=== PATIENT | female | born 1950 | race Caucasian/White ===

== ENCOUNTER 2018-10-10 10:30 | Outpatient (CLI) | payer MEDICARE, MEDICAID ==
[~2018-10-10 10:30] MED LIST: AMLO10TA PO; BACL10TA2; BUPR150T8 PO; BUPR1TAB36 SL; EREN70AU; OMEP20CA11 PO; PARO10TA85 PO
[2018-10-10] MEDS ORDERED: hydrocortisone 1% cream 28gm TP ONE (11:51)
[2018-10-10] MEDS ORDERED: nystatin/triamcinolone cream 15gm TP ONE (11:51)
--- NOTE | 2018-10-10 12:39 | NUR ---
Patient ambulated independently from [facility] and was admitted to outpatient wound care for physician visit with Stewart Christensen MD. Dressing removed, wounds cleansed and patient assessed for changes in conditions, medications and medical history. Dr. Christensen at bedside accompanied by RN. Wound assessed, time out performed by MD/RN. Wound debrided as detailed in the physician progress/procedure note. Plan of care discussed with patient. Dressings placed per MD orders. Patient instructed on the signs and symptoms of infection and to call the Wound Center if any occur or to go to the ED if we are closed: Increased pain in wound Increase in drainage from the wound Redness in the skin surrounding the wound Bleeding from the wound Temperature of 101 or greater Patient instructed that the weight of their body puts a large amount of pressure on their wounds. This pressure keeps the new tissue from growing and inhibits new blood vessels from forming. Explained that, if they continue to bear weight on a body part that has a wound, the time it takes to heal the wound increases, the wound may get worse or the wound may not heal at all. Patient verbalized understanding of all discharge instructions and plan of care and ambulated independently out to [facility] in stable condition with no sign or symptom of distress at time of discharge. Addendum: 10/10/18 at 1242 by Nereida Peterson RN Amended: Links added.
== END 2018-10-10 12:23 | disposition home or self-care (01) ==
LOC: WOUND CARE 10:30 → EDSTATUS 10:30 → WOUND CARE 12:23
PROVIDERS: ATTEND Surgery
DX: S81.802D Unspecified open wound, left lower leg, subsequent encounter (principal); S80.811A Abrasion, right lower leg, initial encounter; X58.XXXD Exposure to other specified factors, subsequent encounter; X58.XXXA Exposure to other specified factors, initial encounter; Y93.89 Activity, other specified; Y92.89 Other specified places as the place of occurrence of the external cause; Y99.8 Other external cause status
CPT/HCPCS: 29581; A6223; J7999; A6441

== ENCOUNTER 2018-12-26 16:17 | Inpatient (IN) | payer MEDICARE, MEDICAID ==
[~2018-12-26] VITALS: Ht 165.1 cm; Wt 50.0 kg
[2018-12-26] MEDS ORDERED: morphine 4 MG/ML inj SYRINge IV ONE (16:45)
[2018-12-26] MEDS ORDERED: ondansetron/PF 4mg/2ml inj IV ONE (16:45)
--- NOTE | 2018-12-26 17:15 | NUR ---
pt out to ct via usha with electric knife operator
[2018-12-26 17:17] LABS: BASOPHILS # (AUTO) 0.1 X10'3 (0-0.2); BASOPHILS % (AUTO) 1.5 % (0-1); EOSINOPHILS # (AUTO) 0.1 X10'3 (0-0.9); EOSINOPHILS % (AUTO) 2.2 % (0-6); HEMOGLOBIN 13.9 g/dl (12.0-16.0); LYMPHOCYTES # (AUTO) 1.2 X10'3 (1.1-4.8); LYMPHOCYTES % (AUTO) 26.6 % (21-51); MEAN CORPUSCULAR HEMOGLOBIN 33.3 PG (27.0-31.0); MEAN CORPUSCULAR VOLUME 97.9 FL (78-98); MEAN PLATELET VOLUME 6.5 FL (7.4-10.4); MONOCYTES # (AUTO) 0.5 X10'3 (0-0.9); MONOCYTES % (AUTO) 12.4 % (2-12); NEUTROPHILS # (AUTO) 2.5 X10'3 (1.8-7.7); NEUTROPHILS % (AUTO) 57.3 % (42-75); PLATELET COUNT 257 X10'3 (140-440); RED BLOOD COUNT 4.19 X10'6 (4.20-5.60); RED CELL DISTRIBUTION WIDTH 12.9 % (11.5-14.5); WHITE BLOOD COUNT 4.4 X10'3 (4.5-11.0)
[2018-12-26 17:30] LABS: PARTIAL THROMBOPLASTIN TIME 29 SECONDS (22-32)
[2018-12-26 17:32] LABS: ALANINE AMINOTRANSFERASE 31 U/L (12-78); ALBUMIN 4.1 G/DL (3.4-5.0); ALBUMIN/GLOBULIN RATIO 1.2 (1.1-1.5); ALKALINE PHOSPHATASE 82 IU/L (46-116); ANION GAP 10 (8-16); ASPARTATE AMINO TRANSFERASE 31 U/L (10-37); BILIRUBIN,TOTAL 0.4 MG/DL (0.1-1.0); BLOOD UREA NITROGEN 4 MG/DL (7-18); BUN/CREATININE RATIO 9.1 (6.6-38.0); CALCIUM 8.9 MG/DL (8.5-10.1); CHLORIDE 98 MMOL/L (99-107); CREATININE 0.44 MG/DL (0.40-0.90); GLUCOSE 93 MG/DL (70-104); POTASSIUM 3.5 MMOL/L (3.5-5.1); SODIUM 137 MMOL/L (135-145); TOTAL CARBON DIOXIDE 29.3 MMOL/L (24-32); TOTAL PROTEIN 7.4 G/DL (6.4-8.2); eGFR > 90 ML/MIN
[2018-12-26] MEDS ORDERED: HYDROmorphone 1 mg/ml syringe IV ONE ×2 (18:05→19:45)
[2018-12-26] MEDS ORDERED: dextrose 5%-1/2 normal saline 1,000 ML IV SCH (18:10)
[2018-12-26] MEDS ORDERED: acetaminophen 325mg tablet PO PRN (18:10)
[2018-12-26] MEDS ORDERED: mag hydrox/Alum hydrox/simeth 30ml oral suspension PO PRN (18:10)
[2018-12-26] MEDS ORDERED: HYDROcodone/acetaminophen 5mg/325mg tablet PO PRN (18:10)
[2018-12-26] MEDS ORDERED: morphine 2 MG/ML inj. syringe IV PRN ×2 (18:10)
[2018-12-26] MEDS ORDERED: HYDROcodone/acetaminophen 10/325mg tab PO PRN ×2 (18:10→23:40)
[2018-12-26] MEDS ORDERED: ondansetron/PF 4mg/2ml inj IV PRN ×4 (18:10→23:40)
[2018-12-26] MEDS ORDERED: magnesium hydroxide 30ml (MOM) UD suspension PO PRN (18:10)
[2018-12-26] MEDS ORDERED: MULT-933 PO (19:08)
[2018-12-26] MEDS ORDERED: FLUT1AER (19:08)
[2018-12-26] MEDS ORDERED: ALBU18HF2 INH (19:08)
[2018-12-26] MEDS ORDERED: HYDROmorphone inj. 0.5 MG/0.5 ML DISP.SYRIN IV PRN (19:45)
[2018-12-26] MEDS ORDERED: HYDROmorphone 1 mg/ml syringe IV PRN (19:45)
[2018-12-26] MEDS ORDERED: non-formulary drug (Albuterol Sulfate (Ventolin Hfa) 2 PUFFS) INH SCH (19:55)
[2018-12-26 20:00] VITALS: BP 138/81
[2018-12-26] MEDS: buPROPion SR 150mg tablet PO SCH (20:00)
[2018-12-26] MEDS ORDERED: albuterol 2.5 MG/3 ML nebule NEB PRN (20:00)
--- NOTE | 2018-12-26 20:00 | NUR ---
PT ARRIVED TO UNIT VIA GURNEY. AMBULATED TO BED, VOIDED, VSS, CALL LIGHT IN REACH, BLL, 2X RAILS UP. PAIN MEDICINE GIVEN BY ED NURSE. WILL CONTINUE TO MONITOR
--- NOTE | 2018-12-26 20:05 | NUR ---
DILAUDID GIVEN BY KAVIN FORTE
[2018-12-26] MEDS: normal saline 1000ml 1,000 ML IV SCH (20:27)
--- NOTE | 2018-12-26 21:16 | NUR ---
Dr. Crawley at bedside
[2018-12-26] MEDS ORDERED: ringers solution, lacted 1,000 ML IV SCH (21:28)
[2018-12-26] MEDS ORDERED: morphine 4 MG/ML inj SYRINge IV PRN ×2 (21:30)
[2018-12-26] MEDS ORDERED: fentaNYL/PF 50MCG/1 ML 2ML syringe IV PRN ×2 (21:30)
[2018-12-26] MEDS ORDERED: labetalol 20mg/4ml (5mg/ml) syringe IV PRN (21:30)
[2018-12-26] MEDS ORDERED: hydrALAZINE 20mg/ml inj. IV PRN (21:30)
[2018-12-26 21:45] VITALS: BP 138/81
[2018-12-26] MEDS ORDERED: fentaNYL/PF 50MCG/1 ML 2ML syringe ONE ×2 (22:00)
[2018-12-26] MEDS ORDERED: midazolam 2 mg/2 ml injection ONE (22:01)
[2018-12-26] MEDS ORDERED: glycopyrrolate 0.2mg/ml inj ONE (22:02)
[2018-12-26] MEDS ORDERED: neostigmine methylsulfate 1 MG/ML 10ml vial ONE (22:02)
[2018-12-26] MEDS ORDERED: rocuronium 10mg/ml inj IV ONE (22:02)
[2018-12-26] MEDS ORDERED: dexamethasone sod phosphate 4mg/ml inj. ONE (22:03)
[2018-12-26] MEDS ORDERED: ondansetron/PF 4mg/2ml inj ONE (22:03)
[2018-12-26] MEDS ORDERED: propofol inj 20 ML IV ONE (22:03)
[2018-12-26] MEDS ORDERED: LIDOcaine 1%/PF 5ML 10 MG/ML VIAL ONE (22:03)
[2018-12-26] MEDS ORDERED: BUPIVAcaine/PF 2.5 mg/ml (0.25%) 30ml vial ONE (22:06)
[2018-12-26] MEDS ORDERED: ceFAZolin 1000mg inj ONE ×2 (22:06→22:44)
--- NOTE | 2018-12-26 22:15 | NUR ---
PT TO OPERATING ROOM
[2018-12-26 22:35] LABS: ALBUMIN 3.9 G/DL (3.4-5.0); BLOOD UREA NITROGEN 3 MG/DL (7-18); BUN/CREATININE RATIO 6.7 (6.6-38.0); CALCIUM 8.6 MG/DL (8.5-10.1); CHLORIDE 100 MMOL/L (99-107); CREATININE 0.45 MG/DL (0.40-0.90); PRE OP ANION GAP 12 (8-16); PRE OP GLUCOSE 103 MG/DL (70-104); PRE OP POTASSIUM 3.5 MMOL/L (3.4-5.1); PRE OP SODIUM 141 MMOL/L (135-145); TOTAL CARBON DIOXIDE 29.3 MMOL/L (24-32); eGFR > 90 ML/MIN
[2018-12-26 23:05] LABS: MEAN CORPUSCULAR HEMOGLOBIN 33.3 PG (27.0-31.0); MEAN CORPUSCULAR HGB CONC 33.6 g/dL (33.0-36.5); MEAN PLATELET VOLUME 6.8 FL (7.4-10.4); PRE OP HEMATOCRIT 42.6 % (35.0-45.0); PRE OP HEMOGLOBIN 14.3 g/dL (12.0-16.0); PRE OP PLATELET COUNT 258 X10'3 (140-440); RED CELL DISTRIBUTION WIDTH 12.9 % (11.5-14.5)
--- NOTE | 2018-12-26 23:10 | NUR ---
report called from recovery room, KAVIN Coy
--- NOTE | 2018-12-26 23:40 | NUR ---
pt arrived back to unit. VSS, in no apparent distress, will continue to monitor Addendum: 12/27/18 at 0216 by Jose E Schuler RN inc date/time. 12/27/18 at 0000
[2018-12-26 23:45] VITALS: BP 156/95
--- NOTE | 2018-12-26 23:45 | NUR ---
Received from OR via MEDICAL BED, accompanied by Anesthesiologist DR. FRITZ and report given by Anesthesiolgist. PT ARRIVED WITH O2 VIA MASK AT 10L IN PLACE. AWAKE AND ALERT, DENIES PAIN. DRESSING TO LT GROIN CDI. JAIME WITH GOOD CSM. PUSLES AND DREDGE WORKER WNL.
[2018-12-26 23:55] VITALS: BP 147/84
[2018-12-27] VITALS (12 sets, daily range): BP systolic 106–148; BP diastolic 35–88
[2018-12-27] MEDS ORDERED: ceFAZolin 1GM/D5W- ADD-VANTAGE 50 ML IV SCH
--- NOTE | 2018-12-27 00:25 | NUR ---
Report called to receiving nurse ANITHA VALE. Transferred via MEDICAL BED TO ROOM 350B. Belongings NONE BROUGHT TO RR. Special Issues communicated to receiving nurse. VSS ON RA.
[2018-12-27] MEDS: ceFAZolin 1GM/D5W- ADD-VANTAGE 50 ML IV SCH ×2 (00:56→08:05)
[2018-12-27] MEDS: normal saline 1000ml 1,000 ML IV SCH (05:40)
[2018-12-27 06:25] LABS: BASOPHILS % (AUTO) 0.3 % (0-1); EOSINOPHILS % (AUTO) 0 % (0-6); HEMATOCRIT 42.1 % (35.0-45.0); HEMOGLOBIN 14.3 g/dl (12.0-16.0); LYMPHOCYTES # (AUTO) 0.4 X10'3 (1.1-4.8); LYMPHOCYTES % (AUTO) 5.5 % (21-51); MEAN CORPUSCULAR HEMOGLOBIN 33.9 PG (27.0-31.0); MEAN CORPUSCULAR VOLUME 99.5 FL (78-98); MONOCYTES # (AUTO) 0.1 X10'3 (0-0.9); MONOCYTES % (AUTO) 1.8 % (2-12); NEUTROPHILS % (AUTO) 92.4 % (42-75); PLATELET COUNT 239 X10'3 (140-440); RED BLOOD COUNT 4.23 X10'6 (4.20-5.60); RED CELL DISTRIBUTION WIDTH 12.9 % (11.5-14.5); WHITE BLOOD COUNT 7.5 X10'3 (4.5-11.0)
--- NOTE | 2018-12-27 06:39 | NUR ---
Problems reprioritized. Patient report given, questions answered & plan of care reviewed with KAVIN Gordon.
--- NOTE | 2018-12-27 06:49 | NUR ---
Patient in room [facility] 350. I have received report from You VALE and had the opportunity to ask questions and assume patient care.
[2018-12-27 06:59] LABS: ALANINE AMINOTRANSFERASE 27 U/L (12-78); ALBUMIN 3.4 G/DL (3.4-5.0); ALBUMIN/GLOBULIN RATIO 1.1 (1.1-1.5); ALKALINE PHOSPHATASE 73 IU/L (46-116); ANION GAP 10 (8-16); ASPARTATE AMINO TRANSFERASE 25 U/L (10-37); BILIRUBIN,TOTAL 0.5 MG/DL (0.1-1.0); BLOOD UREA NITROGEN 3 MG/DL (7-18); BUN/CREATININE RATIO 6.4 (6.6-38.0); CALCIUM 8.3 MG/DL (8.5-10.1); CHLORIDE 103 MMOL/L (99-107); CREATININE 0.47 MG/DL (0.40-0.90); GLUCOSE 143 MG/DL (70-104); POTASSIUM 3.6 MMOL/L (3.5-5.1); SODIUM 141 MMOL/L (135-145); TOTAL CARBON DIOXIDE 27.9 MMOL/L (24-32); TOTAL PROTEIN 6.6 G/DL (6.4-8.2); eGFR > 90 ML/MIN
[2018-12-27] MEDS ORDERED: pantoprazole 40mg Tablet.DR PO SCH (07:30)
[2018-12-27] MEDS ORDERED: non-formulary drug (Amlodipine Besylate 1 TABLET) PO SCH (08:00)
[2018-12-27] MEDS ORDERED: non-formulary drug (Omeprazole 1 CAP) PO SCH (08:00)
[2018-12-27] MEDS ORDERED: amLODIPine 5mg tablet PO SCH (08:00)
[2018-12-27] MEDS ORDERED: PARoxetine 10mg tablet PO SCH (08:00)
[2018-12-27] MEDS: buPROPion SR 150mg tablet PO SCH (08:05)
[2018-12-27] MEDS ORDERED: HYDR-4353 PO (16:11)
--- NOTE | 2018-12-27 18:00 | NUR ---
Pt DC, A&O, pt's packed and bagged all personal belongings. Pt in no apparent distress. Pt & state understanding of discharge orders and follow up with Dr Holland. Pt was given a [place] prescription with her DC folder. Pt was happy to go hm.
== END 2018-12-27 18:00 | disposition home or self-care (01) | DRG 351 ==
LOC: ER 16:17 → SUR 3N 20:16
PROVIDERS: ADMIT Internal Medicine; ATTEND Internal Medicine
PROC: 0YQ80ZZ Repair Left Femoral Region, Open Approach (ICD-10-PCS; principal; 2018-12-26 22:27)
DX: K41.30 Unilateral femoral hernia, with obstruction, without gangrene, not specified as recurrent (principal); Z68.1 Body mass index [BMI] 19.9 or less, adult; R63.6 Underweight; K21.9 Gastro-esophageal reflux disease without esophagitis; J44.9 Chronic obstructive pulmonary disease, unspecified; I10 Essential (primary) hypertension; F32.9 Major depressive disorder, single episode, unspecified; F41.9 Anxiety disorder, unspecified; G89.29 Other chronic pain; Z79.899 Other long term (current) drug therapy; Z90.710 Acquired absence of both cervix and uterus
CPT/HCPCS: 36415; 74176; 76775; 80048; 80053; 82948; 85025; 85027; 85610; 85730; 87081; 88302; 88305; 96361; 96374; 96375; 96376; 99285; A4215; A4618; A6258; A7000; C1758; G0378; J0690; J1100; J1170; J2250; J2270; J2405; J2704; J2710; J3010; J3490; J7030; J7120

== ENCOUNTER 2019-03-17 05:12 | Day surgery (SDC) | payer MEDICARE, MEDICAID ==
[2019-03-16 14:36] LABS: BASOPHILS % (AUTO) 0.5 % (0-1); EOSINOPHILS # (AUTO) 0.1 X10'3 (0-0.9); EOSINOPHILS % (AUTO) 2.2 % (0-6); LYMPHOCYTES % (AUTO) 17.9 % (21-51); MEAN CORPUSCULAR HEMOGLOBIN 32.8 PG (27.0-31.0); MEAN CORPUSCULAR HGB CONC 34.8 g/dL (33.0-36.5); MEAN CORPUSCULAR VOLUME 94.1 FL (78-98); MEAN PLATELET VOLUME 6.8 FL (7.4-10.4); MONOCYTES # (AUTO) 0.7 X10'3 (0-0.9); MONOCYTES % (AUTO) 12.1 % (2-12); NEUTROPHILS # (AUTO) 3.7 X10'3 (1.8-7.7); NEUTROPHILS % (AUTO) 67.3 % (42-75); PRE OP HEMATOCRIT 41.4 % (35.0-45.0); PRE OP HEMOGLOBIN 14.4 g/dL (12.0-16.0); PRE OP PLATELET COUNT 290 X10'3 (140-440); RED CELL DISTRIBUTION WIDTH 13.1 % (11.5-14.5)
[2019-03-16 14:49] LABS: ALBUMIN 4.1 G/DL (3.4-5.0); ALBUMIN/GLOBULIN RATIO 1.3 (1.1-1.5); ALKALINE PHOSPHATASE 78 IU/L (46-116); BLOOD UREA NITROGEN 6 MG/DL (7-18); CALCIUM 9.3 MG/DL (8.5-10.1); CHLORIDE 98 MMOL/L (99-107); PRE OP ALT 32 U/L (30-65); PRE OP ANION GAP 6 (8-16); PRE OP AST 32 U/L (10-37); PRE OP BILIRUB, TOTAL 0.5 MG/DL (0.0-1.0); PRE OP GLUCOSE 89 MG/DL (70-104); PRE OP POTASSIUM 3.9 MMOL/L (3.4-5.1); PRE OP SODIUM 136 MMOL/L (135-145); TOTAL CARBON DIOXIDE 32.3 MMOL/L (24-32); TOTAL PROTEIN 7.2 G/DL (6.4-8.2); eGFR > 90 ML/MIN
[2019-03-17] VITALS (9 sets, daily range): BP systolic 109–134; BP diastolic 63–80
[~2019-03-17] VITALS: Ht 165.1 cm; Wt 49.9 kg
[~2019-03-17 05:12] MED LIST changes: +ALBU18HF2 INH; +B COMPLEX; -BACL10TA2; +BACL10TA2 PO; +FLUT1AER INH; +IRON; +MAG; +MULT-933 PO; +OMEGA; +OMEP-297 PO; -OMEP20CA11 PO; +POTASSIUM; +ZINC; +[UNRECOGNIZED DRUG - OTHER]; +[UNRECOGNIZED DRUG - OTHER]; +ringers solution, lacted 1,000 ML IV SCH
[2019-03-17] MEDS ORDERED: famotidine 10mg tablet PO ONE (05:30)
[2019-03-17] MEDS ORDERED: albuterol 2.5 MG/3 ML nebule NEB ONE (05:30)
[2019-03-17] MEDS ORDERED: cefazolin/dext.iso 2gm/100ml 100 ML IV ONE (05:30)
[2019-03-17] MEDS ORDERED: LIDOcaine 1% (10mg/ml) 2ml vial ONE (06:03)
[2019-03-17] MEDS ORDERED: ceFAZolin 1000mg inj ONE (06:43)
[2019-03-17] MEDS ORDERED: LIDOcaine 1% 30ml preserv. free vial ONE (06:43)
[2019-03-17] MEDS ORDERED: BUPIVAcaine/PF 2.5 mg/ml (0.25%) 30ml vial ONE (06:43)
[2019-03-17] MEDS ORDERED: sevoflurane 250ml liquid IH ONE (07:22)
[2019-03-17] MEDS ORDERED: fentaNYL/PF 50MCG/1 ML 2ML syringe ONE (07:27)
[2019-03-17] MEDS ORDERED: midazolam 2 mg/2 ml injection ONE (07:27)
[2019-03-17] MEDS ORDERED: propofol inj 20 ML IV ONE (07:30)
[2019-03-17] MEDS ORDERED: ringers solution, lacted 1,000 ML IV SCH (07:44)
[2019-03-17] MEDS ORDERED: meperidine/PF 25mg/ml syringe IV PRN ×3 (07:45)
[2019-03-17] MEDS ORDERED: ondansetron/PF 4mg/2ml inj IV PRN (07:45)
[2019-03-17] MEDS ORDERED: proCHLORperazine 10 MG/2 ml inj IV PRN (07:45)
[2019-03-17] MEDS ORDERED: morphine 4 MG/ML inj SYRINge IV PRN ×2 (07:45)
--- NOTE | 2019-03-17 08:04 | NUR ---
Received from OR via DARIANA, accompanied by Anesthesiologist DR GUTIERREZ and report given by Anesthesiologist. PT DROWSY, DENEIS PAIN, RIGHT GROIN W/[place] NYLA STEVENS. Addendum: 03/17/19 at 0850 by Faiza Villegas RN Amended: Links added.
[2019-03-17] MEDS ORDERED: HYDROcodone/acetaminophen 5mg/325mg tablet PO PRN (08:10)
--- NOTE | 2019-03-17 09:34 | NUR ---
D/C INSTRUCTIONS GIVEN AND GONE OVER W/PT WHO VERBALIZED UNDERSTANDING, PT D/CD TO HOME VIA W/C TO PRIVATE VEHICLE W/O INCIDENT. Addendum: 03/17/19 at 1010 by Faiza Villegas RN Amended: Links added.
== END 2019-03-17 09:34 | disposition home or self-care (01) ==
LOC: PAS 05:12
PROVIDERS: ATTEND Surgery
DX: R59.0 Localized enlarged lymph nodes (principal); F32.9 Major depressive disorder, single episode, unspecified; F41.9 Anxiety disorder, unspecified; J44.9 Chronic obstructive pulmonary disease, unspecified; K21.9 Gastro-esophageal reflux disease without esophagitis; I10 Essential (primary) hypertension; Z90.710 Acquired absence of both cervix and uterus; Z98.890 Other specified postprocedural states; Z79.899 Other long term (current) drug therapy; Z91.040 Latex allergy status; Z91.011 Allergy to milk products; Z72.89 Other problems related to lifestyle; Z82.49 Family history of ischemic heart disease and other diseases of the circulatory system; Z82.3 Family history of stroke; Z80.59 Family history of malignant neoplasm of other urinary tract organ
CPT/HCPCS: 36415; 38531; 80053; 82948; 85025; J0690; J2001; J2250; J2704; J3010; J3490; J7120; A4215; A4618; A7000

== ENCOUNTER 2019-09-22 05:29 | Day surgery (SDC) | payer MEDICARE, OTHER, MEDICAID ==
[2019-09-15 15:36] LABS: BASOPHILS % (AUTO) 0.8 % (0-1); EOSINOPHILS # (AUTO) 0.1 X10'3 (0-0.9); EOSINOPHILS % (AUTO) 1.1 % (0-6); LYMPHOCYTES # (AUTO) 1.3 X10'3 (1.1-4.8); LYMPHOCYTES % (AUTO) 20.8 % (21-51); MEAN CORPUSCULAR HEMOGLOBIN 33.3 PG (27.0-31.0); MEAN CORPUSCULAR HGB CONC 33.5 g/dL (33.0-36.5); MEAN CORPUSCULAR VOLUME 99.2 FL (78-98); MEAN PLATELET VOLUME 7.1 FL (7.4-10.4); MONOCYTES # (AUTO) 0.7 X10'3 (0-0.9); MONOCYTES % (AUTO) 10.3 % (2-12); NEUTROPHILS # (AUTO) 4.3 X10'3 (1.8-7.7); PRE OP HEMATOCRIT 41.2 % (35.0-45.0); PRE OP HEMOGLOBIN 13.8 g/dL (12.0-16.0); PRE OP PLATELET COUNT 330 X10'3 (140-440); RED BLOOD COUNT 4.15 X10'6 (4.20-5.60); RED CELL DISTRIBUTION WIDTH 12.7 % (11.5-14.5)
[2019-09-15 15:49] LABS: ALBUMIN 3.9 G/DL (3.4-5.0); ALBUMIN/GLOBULIN RATIO 1.1 (1.1-1.5); ALKALINE PHOSPHATASE 76 IU/L (46-116); BLOOD UREA NITROGEN 4 MG/DL (7-18); BUN/CREATININE RATIO 8.2 (6.6-38.0); CALCIUM 9.1 MG/DL (8.5-10.1); CHLORIDE 100 MMOL/L (99-107); CREATININE 0.49 MG/DL (0.40-0.90); PRE OP ALT 36 U/L (30-65); PRE OP ANION GAP 9 (8-16); PRE OP AST 40 U/L (10-37); PRE OP BILIRUB, TOTAL 0.5 MG/DL (0.0-1.0); PRE OP GLUCOSE 74 MG/DL (70-104); PRE OP POTASSIUM 3.8 MMOL/L (3.4-5.1); PRE OP SODIUM 139 MMOL/L (135-145); TOTAL CARBON DIOXIDE 30.5 MMOL/L (24-32); TOTAL PROTEIN 7.3 G/DL (6.4-8.2); eGFR > 90 ML/MIN
[2019-09-22] VITALS (11 sets, daily range): BP systolic 113–145; BP diastolic 63–80
[~2019-09-22] VITALS: Ht 162.6 cm; Wt 51.0 kg
[~2019-09-22 05:29] MED LIST changes: -BACL10TA2 PO; -BUPR1TAB36 SL; +BUPR1TAB45 SL; -FLUT1AER INH; -OMEP-297 PO; +OMEP20CA15 PO
[2019-09-22] MEDS ORDERED: famotidine 20mg tablet PO ONE (05:30)
[2019-09-22] MEDS ORDERED: ceFAZolin 2gm in dextrose, iso 50 ML IV ONE (05:30)
[2019-09-22] MEDS ORDERED: LIDOcaine 1% 30ml preserv. free vial ONE (06:37)
[2019-09-22] MEDS ORDERED: BUPIVAcaine/PF 2.5 mg/ml (0.25%) 30ml vial ONE (06:38)
[2019-09-22] MEDS ORDERED: rocuronium 10mg/ml inj IV ONE (06:59)
[2019-09-22] MEDS ORDERED: midazolam 2 mg/2 ml injection ONE (06:59)
[2019-09-22] MEDS ORDERED: fentaNYL/PF 50MCG/1 ML 2ML syringe ONE (06:59)
[2019-09-22] MEDS ORDERED: sevoflurane 250ml liquid IH ONE (07:31)
[2019-09-22] MEDS ORDERED: propofol inj 20 ML IV ONE (07:45)
[2019-09-22] MEDS ORDERED: ringers solution, lacted 1,000 ML IV SCH (08:18)
[2019-09-22] MEDS ORDERED: morphine 4 MG/ML inj SYRINge IV PRN (08:20)
[2019-09-22] MEDS ORDERED: meperidine/PF 25mg/ml syringe IV PRN ×3 (08:20)
[2019-09-22] MEDS ORDERED: morphine 2 MG/ML inj. syringe IV PRN (08:20)
[2019-09-22] MEDS ORDERED: ondansetron/PF 4mg/2ml inj IV PRN (08:20)
[2019-09-22] MEDS ORDERED: proCHLORperazine 10 MG/2 ml inj IV PRN (08:20)
[2019-09-22] MEDS ORDERED: dexamethasone sod phosphate 4mg/ml inj. ONE (08:43)
[2019-09-22] MEDS ORDERED: ondansetron/PF 4mg/2ml inj ONE (08:43)
--- NOTE | 2019-09-22 09:01 | NUR ---
Received from OR via DARIANA , accompanied by Anesthesiologist MIGUEL ANGEL and report given by Anesthesiolgist. PATIENT WITH 20G PIV IN RIGHT UE RUNNING LR AT 100 IN LEFT UE. PATIENT WITH 4X4 DRESSING WITH TAPE PRESENT THAT IS CDI. VSS. DENIES PAIN. VSS. Addendum: 09/22/19 at 0924 by Kameron Medina RN, RN Amended: Links added.
[2019-09-22] MEDS ORDERED: HYDROcodone/acetaminophen 5mg/325mg tablet PO PRN (09:10)
--- NOTE | 2019-09-22 10:41 | NUR ---
I HAVE REVIEWED D/C INSTRUCTIONS WITH PATIENT AND FAMILY AND THEY HAVE VERBALIZED UNDERSTANDING. PATIENT D/C HOME WITH ALL BELONGINGS AND FAMILY GAVE TRANSPORT HOME. VOIDED, AMBULATED AND ALL DC PAPERWORK AND SCRIPT SENT WITH PATIENT. Addendum: 09/22/19 at 1109 by Kameron Medina RN, RN Amended: Links added.
== END 2019-09-22 10:41 | disposition home or self-care (01) ==
LOC: PAS 05:29
PROVIDERS: ATTEND Surgery
DX: K41.30 Unilateral femoral hernia, with obstruction, without gangrene, not specified as recurrent (principal); M19.90 Unspecified osteoarthritis, unspecified site; F32.9 Major depressive disorder, single episode, unspecified; F41.9 Anxiety disorder, unspecified; I10 Essential (primary) hypertension; J44.9 Chronic obstructive pulmonary disease, unspecified; Z91.040 Latex allergy status; Z88.8 Allergy status to other drugs, medicaments and biological substances; Z72.89 Other problems related to lifestyle; Z11.59 Encounter for screening for other viral diseases; Z90.710 Acquired absence of both cervix and uterus; Z98.890 Other specified postprocedural states; Z90.49 Acquired absence of other specified parts of digestive tract; Z79.899 Other long term (current) drug therapy; Z91.011 Allergy to milk products
CPT/HCPCS: 36415; 49553; 80053; 82948; 85025; 93005; C1781; J1100; J2001; J2250; J2405; J2704; J3010; J3490; J7120; U0003; A4215; A4618; A6449

== ENCOUNTER 2019-11-25 18:13 | Emergency (ER) | payer MEDICARE, OTHER ==
[~2019-11-25] VITALS: Ht 167.6 cm; Wt 52.0 kg
[~2019-11-25 18:13] MED LIST changes: -AMLO10TA PO; +AMLO10TA13 PO; -B COMPLEX; +BUDE10.2 INH; +BUPR-72 PO; -BUPR150T8 PO; -BUPR1TAB45 SL; +BUPR8TAB4 PO; +CHLO25CA10 PO; +DICY10CA88 PO; -EREN70AU; -IRON; +LOPE-190 PO; -MAG; +MULT-25 PO; -MULT-933 PO; -OMEGA; +OMEP-50 PO; -OMEP20CA15 PO; +ONDA4TAB6 PO; +ONDA8TAB13 PO; +PARO10TA4 PO; -PARO10TA85 PO; -POTASSIUM; -ZINC; -[UNRECOGNIZED DRUG - OTHER]; -[UNRECOGNIZED DRUG - OTHER]; -ringers solution, lacted 1,000 ML IV SCH; +thiamine tablet PO
[2019-11-25 18:17] VITALS: BP 133/73
== END 2019-11-25 20:26 | disposition left against medical advice (07) ==
LOC: ER 18:13
DX: F10.129 Alcohol abuse with intoxication, unspecified (principal); Z53.21 Procedure and treatment not carried out due to patient leaving prior to being seen by health care provider; Y90.9 Presence of alcohol in blood, level not specified

== ENCOUNTER 2019-12-04 21:38 | Emergency (ER) | payer MEDICARE, OTHER ==
[~2019-12-04] VITALS: Ht 165.1 cm; Wt 56.0 kg
--- NOTE | 2019-12-04 22:28 | NUR ---
BREAKING PRIMARY RN- WILL CONT TO MONITOR
--- NOTE | 2019-12-04 22:47 | NUR ---
Dr. Mcginnis at bedside.
--- NOTE | 2019-12-04 23:00 | NUR ---
SPOKE WITH PT'S - HE IS ON HIS WAY TO PROCESS PLANNER PT
[2019-12-04 23:06] VITALS: BP 122/71
== END 2019-12-04 23:26 | disposition home or self-care (01) ==
LOC: ER 21:38
DX: F10.129 Alcohol abuse with intoxication, unspecified (principal); I10 Essential (primary) hypertension; J44.9 Chronic obstructive pulmonary disease, unspecified; M19.90 Unspecified osteoarthritis, unspecified site; G89.29 Other chronic pain; F41.9 Anxiety disorder, unspecified; F32.9 Major depressive disorder, single episode, unspecified; Z90.710 Acquired absence of both cervix and uterus; Z98.890 Other specified postprocedural states; Z88.8 Allergy status to other drugs, medicaments and biological substances; Z79.899 Other long term (current) drug therapy; Y90.0 Blood alcohol level of less than 20 mg/100 ml
CPT/HCPCS: 82948; 99284

== ENCOUNTER 2020-05-10 09:10 | Observation (INO) | payer MEDICARE, OTHER ==
[2020-05-03 15:54] LABS: BASOPHILS % (AUTO) 0.6 % (0-1); EOSINOPHILS # (AUTO) 0.1 X10'3 (0-0.9); EOSINOPHILS % (AUTO) 2.2 % (0-6); MEAN CORPUSCULAR HGB CONC 33.7 g/dL (33.0-36.5); MEAN CORPUSCULAR VOLUME 98.1 FL (78-98); MEAN PLATELET VOLUME 6.8 FL (7.4-10.4); MONOCYTES # (AUTO) 0.9 X10'3 (0-0.9); MONOCYTES % (AUTO) 17.2 % (2-12); NEUTROPHILS # (AUTO) 3.2 X10'3 (1.8-7.7); PRE OP HEMATOCRIT 39.6 % (35.0-45.0); PRE OP HEMOGLOBIN 13.3 g/dL (12.0-16.0); PRE OP PLATELET COUNT 289 X10'3 (140-440); RED BLOOD COUNT 4.03 X10'6 (4.20-5.60); RED CELL DISTRIBUTION WIDTH 13.2 % (11.5-14.5)
[2020-05-03 16:06] LABS: ALBUMIN/GLOBULIN RATIO 1.1 (1.1-1.5); ALKALINE PHOSPHATASE 72 IU/L (46-116); BLOOD UREA NITROGEN 7 MG/DL (7-18); BUN/CREATININE RATIO 13.5 (6.6-38.0); CALCIUM 8.7 MG/DL (8.5-10.1); CHLORIDE 98 MMOL/L (99-107); CREATININE 0.52 MG/DL (0.40-0.90); PRE OP ALT 29 U/L (30-65); PRE OP ANION GAP 9 (8-16); PRE OP AST 32 U/L (10-37); PRE OP BILIRUB, TOTAL 0.6 MG/DL (0.0-1.0); PRE OP GLUCOSE 81 MG/DL (70-104); PRE OP POTASSIUM 3.8 MMOL/L (3.4-5.1); PRE OP SODIUM 135 MMOL/L (135-145); TOTAL CARBON DIOXIDE 28.5 MMOL/L (24-32); TOTAL PROTEIN 7.7 G/DL (6.4-8.2); eGFR > 90 ML/MIN
[~2020-05-10] VITALS: Ht 167.6 cm; Wt 55.2 kg
[2020-05-10] VITALS (22 sets, daily range): BP systolic 112–160; BP diastolic 62–91
[~2020-05-10 09:10] MED LIST changes: -BUDE10.2 INH; -BUPR-72 PO; +BUPR150T8 PO; -CHLO25CA10 PO; -DICY10CA88 PO; +EREN70AU2 SQ; -LOPE-190 PO; +MAGN400C PO; +OMEG1CAP21 PO; -OMEP-50 PO; +OMEP20CA15 PO; -ONDA4TAB6 PO; -ONDA8TAB13 PO; -PARO10TA4 PO; +PARO10TA85 PO; +VITA1TAB37 PO; +ceFAZolin 2gm in dextrose, iso 50 ML IV ONE; +famotidine 20mg tablet PO ONE; +ringers solution, lacted 1,000 ML IV SCH; -thiamine tablet PO
[2020-05-10] MEDS ORDERED: LIDOcaine 1% (10mg/ml) 2ml vial ONE (09:58)
[2020-05-10] MEDS ORDERED: BUPIVAcaine/PF 2.5 mg/ml (0.25%) 30ml vial ONE (11:00)
[2020-05-10] MEDS ORDERED: LIDOcaine 1% 30ml preserv. free vial ONE (11:00)
[2020-05-10] MEDS ORDERED: sevoflurane 250ml liquid IH ONE ×2 (11:16→12:21)
[2020-05-10] MEDS ORDERED: fentaNYL/PF 50MCG/1 ML 2ML syringe ONE ×2 (11:26→11:53)
[2020-05-10] MEDS ORDERED: midazolam 2 mg/2 ml injection ONE (11:26)
[2020-05-10] MEDS ORDERED: ondansetron/PF 4mg/2ml inj ONE (11:44)
[2020-05-10] MEDS ORDERED: LIDOcaine 2% (20mg/ml) 5ml vial ONE (11:44)
[2020-05-10] MEDS ORDERED: dexamethasone sod phosphate 4mg/ml inj. ONE (11:44)
[2020-05-10] MEDS ORDERED: propofol inj 20 ML IV ONE (11:44)
[2020-05-10] MEDS ORDERED: neostigmine methylsulfate 1 MG/ML 10ml vial ONE ×2 (11:44→13:07)
[2020-05-10] MEDS ORDERED: rocuronium 10mg/ml inj IV ONE (11:44)
[2020-05-10] MEDS ORDERED: labetalol 20mg/4ml (5mg/ml) syringe IV PRN (12:00)
[2020-05-10] MEDS ORDERED: morphine 2 MG/ML inj. syringe IV PRN (12:00)
[2020-05-10] MEDS ORDERED: morphine 4 MG/ML inj SYRINge IV PRN (12:00)
[2020-05-10] MEDS ORDERED: ondansetron/PF 4mg/2ml inj IV PRN ×2 (12:00→13:30)
[2020-05-10] MEDS ORDERED: acetaminophen 1,000mg/100ml IV 100 ML IV PRN (12:00)
[2020-05-10] MEDS ORDERED: fentaNYL/PF 50MCG/1 ML 2ML syringe IV PRN ×2 (12:00)
[2020-05-10] MEDS ORDERED: ringers solution, lacted 1,000 ML IV SCH (12:00)
[2020-05-10] MEDS ORDERED: proCHLORperazine 10 MG/2 ml inj IV PRN (12:00)
[2020-05-10] MEDS ORDERED: hydrALAZINE 20mg/ml inj. IV PRN (12:00)
[2020-05-10] MEDS ORDERED: ceFOXitin 1000 MG inj ONE (12:07)
[2020-05-10] MEDS ORDERED: diphenhydrAMINE 50 mg/ml inj ONE (12:21)
[2020-05-10] MEDS ORDERED: glycopyrrolate 0.2mg/ml inj ONE (13:07)
--- NOTE | 2020-05-10 13:21 | NUR ---
Received from OR via , accompanied by Anesthesiologist DR CUNNINGHAM and report given by Anesthesiolgist. AWAKENS TO VOICE. VITALS STABLE. DRESSINGS DI. YUNG PAIN. SIMMONS WITH CLEAR URINE.
[2020-05-10] MEDS ORDERED: HYDROcodone/acetaminophen 5mg/325mg tablet PO PRN (13:30)
[2020-05-10] MEDS ORDERED: HYDROcodone/acetaminophen 10/325mg tab PO PRN (13:30)
[2020-05-10] MEDS ORDERED: BUPRENORPHINE 8 MG PO PRN (13:35)
[2020-05-10] MEDS ORDERED: ALBUTEROL INHALER 1 PUFF/90 MCG INHALER IH PRN (13:35)
[2020-05-10] MEDS ORDERED: albuterol 2.5 MG/3 ML nebule NEB PRN (13:50)
[2020-05-10] MEDS ORDERED: MAGN400T28 PO (14:00)
--- NOTE | 2020-05-10 15:11 | NUR ---
Report called to receiving nurse. Transferred via BED Belongings . Special Issues communicated to receiving nurse. AWAKE AND ORIENTED. VITALS STABLE. DRESSINGS DI. STATES PAIN IMPROVING. TO SURGICAL RM 354C AT THIS TIME.
--- NOTE | 2020-05-10 15:25 | NUR ---
Patient in room [facility] 354. I have received report from JACKELYN VALE and had the opportunity to ask questions and assume patient care.
[2020-05-10] MEDS: ceFOXitin inj 1,000 MG in normal saline 100ml IV soln 100 ML IV SCH (16:35)
[2020-05-10] MEDS: Potassium Cl inj 20 MEQ in ringers solution, lacted 1,000 ML IV SCH ×2 (16:35→21:35)
--- NOTE | 2020-05-10 18:40 | NUR ---
Problems reprioritized. Patient report given, questions answered & plan of care reviewed with UMA VALE.
--- NOTE | 2020-05-10 18:47 | NUR ---
Student documentation: I have reviewed and agree with all interventions, assessments performed and documented by BRIELLE DUENAS.
--- NOTE | 2020-05-10 18:49 | NUR ---
Patient in room [facility] 354. I have received report from ISELA VALE and had the opportunity to ask questions and assume patient care.
[2020-05-10] MEDS ORDERED: naloxone 0.4 mg/ml inj IV PRN (19:25)
[2020-05-10] MEDS ORDERED: CADD PCA waste documentation MC PRN (19:25)
[2020-05-10] MEDS: HYDROmorphone/NS 1 mg/ml CADD 50 ML IV SCH ×3 (20:09→23:00)
[2020-05-10] MEDS ORDERED: amLODIPine 5mg tablet PO SCH (21:00)
[2020-05-10] MEDS ORDERED: PARoxetine 10mg tablet PO SCH (21:00)
[2020-05-10] MEDS: buPROPion SR 150mg tablet PO SCH (21:29)
[2020-05-11] VITALS: BP 110/60
[2020-05-11] MEDS: ceFOXitin inj 1,000 MG in normal saline 100ml IV soln 100 ML IV SCH (00:08)
[2020-05-11] MEDS: HYDROmorphone/NS 1 mg/ml CADD 50 ML IV SCH ×6 (01:00→11:00)
[2020-05-11] MEDS: Potassium Cl inj 20 MEQ in ringers solution, lacted 1,000 ML IV SCH ×2 (03:17→11:15)
[2020-05-11 04:00] VITALS: BP 139/66
--- NOTE | 2020-05-11 06:26 | NUR ---
Problems reprioritized. Patient report given, questions answered & plan of care reviewed with ARVIND VALE.
--- NOTE | 2020-05-11 06:38 | NUR ---
Patient in room [facility] 354C. I have received report from MYA ROQUE RN and had the opportunity to ask questions and assume patient care.
[2020-05-11 07:00] VITALS: BP 116/54
[2020-05-11 07:03] LABS: BASOPHILS % (AUTO) 0.2 % (0-1); EOSINOPHILS % (AUTO) 0 % (0-6); HEMATOCRIT 35.1 % (35.0-45.0); LYMPHOCYTES % (AUTO) 10.1 % (21-51); MEAN CORPUSCULAR HEMOGLOBIN 33.4 PG (27.0-31.0); MEAN CORPUSCULAR HGB CONC 34.2 g/dL (33.0-36.5); MEAN CORPUSCULAR VOLUME 97.7 FL (78-98); MEAN PLATELET VOLUME 7.1 FL (7.4-10.4); MONOCYTES % (AUTO) 10.4 % (2-12); NEUTROPHILS # (AUTO) 7.7 X10'3 (1.8-7.7); NEUTROPHILS % (AUTO) 79.3 % (42-75); PLATELET COUNT 294 X10'3 (140-440); RED BLOOD COUNT 3.59 X10'6 (4.20-5.60); RED CELL DISTRIBUTION WIDTH 13.5 % (11.5-14.5); WHITE BLOOD COUNT 9.7 X10'3 (4.5-11.0)
[2020-05-11 07:17] LABS: ANION GAP 5 (8-16); BLOOD UREA NITROGEN 6 MG/DL (7-18); BUN/CREATININE RATIO 12.8 (6.6-38.0); CALCIUM 8.1 MG/DL (8.5-10.1); CHLORIDE 104 MMOL/L (99-107); CREATININE 0.47 MG/DL (0.40-0.90); GLUCOSE 108 MG/DL (70-104); POTASSIUM 4.1 MMOL/L (3.5-5.1); SODIUM 141 MMOL/L (135-145); TOTAL CARBON DIOXIDE 31.7 MMOL/L (24-32); eGFR > 90 ML/MIN
[2020-05-11] MEDS ORDERED: pantoprazole 40mg Tablet.DR PO SCH (07:30)
[2020-05-11] MEDS ORDERED: multivitamins, therapeutics tablet PO SCH (08:00)
[2020-05-11] MEDS: buPROPion SR 150mg tablet PO SCH (11:03)
[2020-05-11] MEDS ORDERED: oxyCODONE/APAP 10/325mg tablet PO PRN (13:50)
[2020-05-11] MEDS ORDERED: PER5325T PO (14:28)
[2020-05-11] MEDS ORDERED: oxyCODONE/APAP 5-325mg tablet PO PRN ×2 (14:35)
--- NOTE | 2020-05-11 16:20 | NUR ---
PATIENT STABLE AND APPROPRIATE FOR DISCHARGE, IV TAKEN OUT, EDUCATION GIVEN, NEW MEDS CALLED IN TO PREFERRED PHARMACY BY 'S OFFICE, ALL BELONGINGS SENT WITH PATIENT, PATIENT TAKEN TO LOBBY IN WHEEL CHAIR TO AN AWAITING CAR WHERE FAMILY MEMBER WILL TAKE PATIENT HOME
== END 2020-05-11 16:22 | disposition home or self-care (01) ==
LOC: PAS 09:10 → SUR 3N 13:26
PROVIDERS: ADMIT Surgery; ATTEND Surgery
DX: K40.91 Unilateral inguinal hernia, without obstruction or gangrene, recurrent (principal); K66.0 Peritoneal adhesions (postprocedural) (postinfection); Z20.822 Contact with and (suspected) exposure to COVID-19; I10 Essential (primary) hypertension; K21.9 Gastro-esophageal reflux disease without esophagitis; R10.814 Left lower quadrant abdominal tenderness
CPT/HCPCS: 36415; 49651; 80048; 80053; 82948; 85025; 87081; 87635; 93005; 94760; 96375; C1781; G0378; J0694; J1100; J1170; J1200; J2001; J2250; J2405; J2704; J2710; J3010; J3480; J3490; S2900; A4215; A4618; J7120

== ENCOUNTER 2020-07-02 11:00 | Emergency (ER) | payer MEDICARE ==
[~2020-07-02] VITALS: Ht 154.9 cm; Wt 52.3 kg
[~2020-07-02 11:00] MED LIST changes: -BUPR8TAB4 PO; -MAGN400C PO; +MAGN400T28 PO; -ceFAZolin 2gm in dextrose, iso 50 ML IV ONE; -famotidine 20mg tablet PO ONE; -ringers solution, lacted 1,000 ML IV SCH
[2020-07-02] MEDS ORDERED: ondansetron 4mg rapidly disintigrating tab PO ONE (11:10)
[2020-07-02] MEDS ORDERED: LORazepam 1 MG tablet PO ONE (11:10)
[2020-07-02] MEDS ORDERED: cloNIDine 0.1 MG/24 HOUR patch (7 day patch) TD ONE (11:10)
[2020-07-02] MEDS ORDERED: NALO4SPR (11:15)
[2020-07-02] MEDS ORDERED: ONDA4TAB6 PO (11:15)
--- NOTE | 2020-07-02 11:43 | NUR ---
CALL TO PT'S AURELIA, STATES HE WILL HAVE SOMEONE HERE TO PICK HER UP WITHIN THE HALF HOUR.
[2020-07-02] MEDS ORDERED: haloperidol lactate 5mg/ml inj IM ONE (11:50)
[2020-07-02 12:30] VITALS: BP 165/82
== END 2020-07-02 12:33 | disposition home or self-care (01) ==
LOC: ER 11:01
DX: F11.23 Opioid dependence with withdrawal (principal); F10.10 Alcohol abuse, uncomplicated; F41.9 Anxiety disorder, unspecified; R11.2 Nausea with vomiting, unspecified; I10 Essential (primary) hypertension; J44.9 Chronic obstructive pulmonary disease, unspecified; M19.90 Unspecified osteoarthritis, unspecified site; G89.29 Other chronic pain; F32.9 Major depressive disorder, single episode, unspecified; Z90.710 Acquired absence of both cervix and uterus; Z98.890 Other specified postprocedural states; Z72.89 Other problems related to lifestyle; Z91.040 Latex allergy status; Z91.018 Allergy to other foods; Z79.899 Other long term (current) drug therapy
CPT/HCPCS: 96372; 99284; J1630

== ENCOUNTER 2020-07-02 20:36 | Emergency (ER) | payer MEDICARE ==
[~2020-07-02] VITALS: Ht 154.9 cm; Wt 52.3 kg
[~2020-07-02 20:36] MED LIST changes: +NALO4SPR; +ONDA4TAB6 PO
--- NOTE | 2020-07-02 21:01 | NUR ---
Clonodine patch present on right shoulder placed earlier today.
[2020-07-02] MEDS ORDERED: ondansetron/PF 4mg/2ml inj IV ONE (22:15)
[2020-07-02] MEDS ORDERED: cloNIDine 0.1 mg tablet PO ONE (22:15)
[2020-07-02] MEDS ORDERED: diazepam inj 5 MG/ML inj. IV ONE (22:15)
[2020-07-02] MEDS ORDERED: normal saline 1000ml 1,000 ML IV ONE (22:15)
--- NOTE | 2020-07-02 22:21 | NUR ---
, Radhames updated after obtaining permission from patient.
[2020-07-02 22:36] LABS: BASOPHILS % (AUTO) 0.3 % (0-1); EOSINOPHILS % (AUTO) 0 % (0-6); HEMATOCRIT 48.8 % (35.0-45.0); HEMOGLOBIN 16.4 g/dl (12.0-16.0); LYMPHOCYTES # (AUTO) 0.7 X10'3 (1.1-4.8); MEAN CORPUSCULAR HEMOGLOBIN 32.3 PG (27.0-31.0); MEAN CORPUSCULAR HGB CONC 33.6 g/dL (33.0-36.5); MEAN CORPUSCULAR VOLUME 96.1 FL (78-98); MEAN PLATELET VOLUME 7.2 FL (7.4-10.4); MONOCYTES # (AUTO) 0.5 X10'3 (0-0.9); MONOCYTES % (AUTO) 4.7 % (2-12); NEUTROPHILS # (AUTO) 9.9 X10'3 (1.8-7.7); PLATELET COUNT 297 X10'3 (140-440); RED BLOOD COUNT 5.08 X10'6 (4.20-5.60); RED CELL DISTRIBUTION WIDTH 12.8 % (11.5-14.5); WHITE BLOOD COUNT 11.1 X10'3 (4.5-11.0)
[2020-07-02 22:42] LABS: ALANINE AMINOTRANSFERASE 28 U/L (12-78); ALBUMIN 4.4 G/DL (3.4-5.0); ALKALINE PHOSPHATASE 91 IU/L (46-116); ANION GAP 16 (8-16); ASPARTATE AMINO TRANSFERASE 39 U/L (10-37); BILIRUBIN,TOTAL 1.1 MG/DL (0.1-1.0); BLOOD UREA NITROGEN 7 MG/DL (7-18); CHLORIDE 95 MMOL/L (99-107); CREATININE 0.54 MG/DL (0.40-0.90); GLUCOSE 172 MG/DL (70-104); LIPASE 72 U/L (73-393); SODIUM 138 MMOL/L (135-145); TOTAL CARBON DIOXIDE 27.2 MMOL/L (24-32); TOTAL PROTEIN 8.7 G/DL (6.4-8.2); eGFR > 90 ML/MIN
[2020-07-02] MEDS ORDERED: potassium Cl 20 mEq SR tablet PO STA (22:51)
--- NOTE | 2020-07-03 00:35 | NUR ---
Called family member Radhames to come black pickler patient and updated him on plan of care. Radhames states he will be here "within the hour".
[2020-07-03 00:44] VITALS: BP 181/96
== END 2020-07-03 01:02 | disposition home or self-care (01) ==
LOC: ER 20:37
DX: F11.23 Opioid dependence with withdrawal (principal); E87.6 Hypokalemia; R06.02 Shortness of breath; R11.2 Nausea with vomiting, unspecified; F41.9 Anxiety disorder, unspecified; I10 Essential (primary) hypertension; J44.9 Chronic obstructive pulmonary disease, unspecified; M19.90 Unspecified osteoarthritis, unspecified site; G89.29 Other chronic pain; F32.9 Major depressive disorder, single episode, unspecified; Z90.710 Acquired absence of both cervix and uterus; Z98.890 Other specified postprocedural states; Z72.89 Other problems related to lifestyle; Z91.040 Latex allergy status; Z91.018 Allergy to other foods; Z79.899 Other long term (current) drug therapy
CPT/HCPCS: 36415; 71045; 80053; 83690; 85025; 93005; 96361; 96374; 96375; 99285; J2405; J3360; J7030

== ENCOUNTER 2020-07-15 15:32 | Emergency (ER) | payer MEDICARE ==
[~2020-07-15] VITALS: Ht 154.9 cm; Wt 50.0 kg
[2020-07-15 16:09] VITALS: BP 113/73
[2020-07-15] MEDS ORDERED: normal saline 1000ML IV soln IVB ONE (17:05)
[2020-07-15 17:24] LABS: BASOPHILS # (AUTO) 0.1 X10'3 (0-0.2); BASOPHILS % (AUTO) 0.7 % (0-1); EOSINOPHILS # (AUTO) 0.1 X10'3 (0-0.9); EOSINOPHILS % (AUTO) 0.6 % (0-6); HEMATOCRIT 45.2 % (35.0-45.0); HEMOGLOBIN 15.3 g/dl (12.0-16.0); LYMPHOCYTES # (AUTO) 2.1 X10'3 (1.1-4.8); LYMPHOCYTES % (AUTO) 18.4 % (21-51); MEAN CORPUSCULAR HEMOGLOBIN 32.6 PG (27.0-31.0); MEAN CORPUSCULAR HGB CONC 33.8 g/dL (33.0-36.5); MEAN CORPUSCULAR VOLUME 96.3 FL (78-98); MONOCYTES # (AUTO) 0.9 X10'3 (0-0.9); MONOCYTES % (AUTO) 8.1 % (2-12); NEUTROPHILS # (AUTO) 8.3 X10'3 (1.8-7.7); NEUTROPHILS % (AUTO) 72.2 % (42-75); PLATELET COUNT 502 X10'3 (140-440); RED BLOOD COUNT 4.69 X10'6 (4.20-5.60); RED CELL DISTRIBUTION WIDTH 12.5 % (11.5-14.5); WHITE BLOOD COUNT 11.6 X10'3 (4.5-11.0)
[2020-07-15] MEDS ORDERED: hyDROXYzine 50 mg/ml injection ***IM only IM ONE (17:25)
[2020-07-15 17:39] LABS: ALANINE AMINOTRANSFERASE 40 U/L (12-78); ALBUMIN/GLOBULIN RATIO 1.2 (1.1-1.5); ALKALINE PHOSPHATASE 86 IU/L (46-116); ANION GAP 12 (8-16); ASPARTATE AMINO TRANSFERASE 34 U/L (10-37); BILIRUBIN,TOTAL 0.4 MG/DL (0.1-1.0); BLOOD UREA NITROGEN 4 MG/DL (7-18); BUN/CREATININE RATIO 5.6 (6.6-38.0); CALCIUM 9.6 MG/DL (8.5-10.1); CHLORIDE 92 MMOL/L (99-107); CREATININE 0.72 MG/DL (0.40-0.90); GLUCOSE 125 MG/DL (70-104); SODIUM 137 MMOL/L (135-145); TOTAL CARBON DIOXIDE 32.9 MMOL/L (24-32); TOTAL PROTEIN 7.4 G/DL (6.4-8.2); eGFR 81 ML/MIN
[2020-07-15 17:42] LABS: POTASSIUM 2.6 MMOL/L (3.5-5.1)
[2020-07-15] MEDS ORDERED: potassium Cl 20 mEq/100mL bag IV ONE (17:45)
[2020-07-15] MEDS ORDERED: potassium Cl 20 mEq SR tablet PO STA ×2 (17:51→19:57)
[2020-07-15] MEDS ORDERED: potassium Cl 10 mEq/100mL bag IV SCH (17:55)
[2020-07-15] MEDS ORDERED: potassium Cl 10 mEq/100mL bag IV ONE (17:55)
--- NOTE | 2020-07-15 18:30 | NUR ---
Pt. Ok'd staff to talk to family member Nadine about her care.
--- NOTE | 2020-07-15 19:05 | NUR ---
Pt. Ok'd Staff to talk to her family member Radhames about her care.
[2020-07-15 19:26] LABS: ALBUMIN 3.5 G/DL (3.4-5.0); ANION GAP 10 (8-16); BLOOD UREA NITROGEN 3 MG/DL (7-18); BUN/CREATININE RATIO 4.1 (6.6-38.0); CALCIUM 8.7 MG/DL (8.5-10.1); CHLORIDE 100 MMOL/L (99-107); CREATININE 0.73 MG/DL (0.40-0.90); GLUCOSE 130 MG/DL (70-104); SODIUM 141 MMOL/L (135-145); TOTAL CARBON DIOXIDE 30.9 MMOL/L (24-32); eGFR 79 ML/MIN
[2020-07-15 19:30] LABS: POTASSIUM 2.6 MMOL/L (3.5-5.1)
[2020-07-15] MEDS ORDERED: potassium Cl 40MEQ/1/2NS 520ml 520 ML IV ONE (19:50)
[2020-07-15] MEDS ORDERED: ondansetron/PF 4mg/2ml inj IV ONE (20:10)
--- NOTE | 2020-07-15 20:18 | NUR ---
IV zofran and PO Potassium. Pt vomited up Potassium tablet and bile immediatly after administration.
--- NOTE | 2020-07-15 20:38 | NUR ---
jabier jung aware that patient vomited up potassium pill . the vomiting appeared intentional. patient then ate crackers and jello and kept the food down
--- NOTE | 2020-07-15 20:43 | NUR ---
malini pena attemtped to walk patient with ffw, which patient uses at home, and patient took a few steps and then jumped back into bed yelling "I cant walk"
--- NOTE | 2020-07-15 20:47 | NUR ---
Called AURELIA () [phone]. He will come pick her up and estimates approx 10 min to arrival
--- NOTE | 2020-07-15 21:04 | NUR ---
SPOKE TO SON WENDI. HE WILL CALL AURELIA HIS STEP DAD TO MAKE SURE HE IS COMING TO PICK THE PATIENT UP. AURELIA'S DAUGHTER IS VISITING DESTINEY "JANNIE IS IN THE HOSPITAL" SON WENDI AWARE THAT HIS MOTHER IS BEING DISCHARGED
== END 2020-07-15 21:26 | disposition home or self-care (01) ==
LOC: ER 15:32
DX: E87.6 Hypokalemia (principal); F41.0 Panic disorder [episodic paroxysmal anxiety]; F41.9 Anxiety disorder, unspecified; G89.29 Other chronic pain; J44.9 Chronic obstructive pulmonary disease, unspecified; F17.200 Nicotine dependence, unspecified, uncomplicated; I10 Essential (primary) hypertension; M19.90 Unspecified osteoarthritis, unspecified site; F10.10 Alcohol abuse, uncomplicated; F32.9 Major depressive disorder, single episode, unspecified; Z90.710 Acquired absence of both cervix and uterus; Z98.890 Other specified postprocedural states; Z91.040 Latex allergy status; Z88.8 Allergy status to other drugs, medicaments and biological substances; Z79.899 Other long term (current) drug therapy; Y90.9 Presence of alcohol in blood, level not specified
CPT/HCPCS: 36415; 80048; 80053; 85025; 96365; 96366; 96372; 96375; 99284; J2405; J3410; J3480; J7030; 96361; 96374

== ENCOUNTER 2022-04-08 10:46 | Emergency (ER) | payer MEDICARE ==
[~2022-04-08] VITALS: Ht 165.1 cm; Wt 40.9 kg
[~2022-04-08 10:46] MED LIST changes: -MAGN400T28 PO; +MAGN400T56 PO; +PARO-153 PO; -PARO10TA85 PO
[2022-04-08] MEDS ORDERED: QUEtiapine 25mg tablet PO STA (10:54)
[2022-04-08] MEDS ORDERED: quetiapine 100mg tablet PO STA (10:59)
[2022-04-08 11:44] LABS: BASOPHILS % (AUTO) 0.5 % (0-1); EOSINOPHILS % (AUTO) 0.2 % (0-6); HEMATOCRIT 34.5 % (35.0-45.0); HEMOGLOBIN 11.4 g/dl (12.0-16.0); LYMPHOCYTES # (AUTO) 0.8 X10'3 (1.1-4.8); LYMPHOCYTES % (AUTO) 10.3 % (21-51); MEAN CORPUSCULAR HEMOGLOBIN 29.3 PG (27.0-31.0); MEAN CORPUSCULAR HGB CONC 32.9 g/dL (33.0-36.5); MEAN PLATELET VOLUME 6.5 FL (7.4-10.4); MONOCYTES # (AUTO) 0.7 X10'3 (0-0.9); NEUTROPHILS # (AUTO) 6.2 X10'3 (1.8-7.7); PLATELET COUNT 526 X10'3 (140-440); RED BLOOD COUNT 3.88 X10'6 (4.20-5.60); RED CELL DISTRIBUTION WIDTH 13.4 % (11.5-14.5); WHITE BLOOD COUNT 7.8 X10'3 (4.5-11.0)
[2022-04-08 11:55] LABS: ALANINE AMINOTRANSFERASE 38 U/L (12-78); ALBUMIN 2.7 G/DL (3.4-5.0); ALBUMIN/GLOBULIN RATIO 0.6 (1.1-1.5); ALKALINE PHOSPHATASE 123 IU/L (46-116); ANION GAP 11 (8-16); ASPARTATE AMINO TRANSFERASE 20 U/L (10-37); BILIRUBIN,TOTAL 0.3 MG/DL (0.1-1.0); BLOOD UREA NITROGEN 12 MG/DL (7-18); BUN/CREATININE RATIO 17.4 (6.6-38.0); CALCIUM 9.2 MG/DL (8.5-10.1); CHLORIDE 97 MMOL/L (99-107); CREATININE 0.69 MG/DL (0.40-0.90); ETHANOL < 0.010 GM/DL (0.0-0.010); GLUCOSE 96 MG/DL (70-104); POTASSIUM 3.8 MMOL/L (3.5-5.1); SODIUM 134 MMOL/L (135-145); TOTAL CARBON DIOXIDE 25.6 MMOL/L (24-32); TOTAL PROTEIN 7.2 G/DL (6.4-8.2); eGFR 84 ML/MIN
[2022-04-08 14:18] LABS: CLARITY,URINE CLEAR (Clear); COLOR,URINE YELLOW (Yellow); GLUCOSE, URINE NEGATIVE (Neg); KETONES,URINE TRACE mg/dl (Neg); LEUKOCYTE ESTERASE ,URINE NEGATIVE (Neg); NITRITES, URINE NEGATIVE (Neg); OCCULT BLOOD,URINE NEGATIVE (Neg); PROTEIN,URINE NEGATIVE (Neg); UROBILINOGEN,URINE 0.2 E.U/dL (0.2-1.0)
[2022-04-08 14:19] LABS: UA COLLECTION TYPE VOIDED
[2022-04-08 14:30] LABS: URINE AMPHETAMINE SCREEN NEGATIVE (Neg); URINE BARBITUATE SCREEN NEGATIVE (Neg); URINE BENZODIAZEPINES SCREEN NEGATIVE (Neg); URINE CANNABINOID SCREEN NEGATIVE (Neg); URINE COCAINE SCREEN NEGATIVE (Neg); URINE METHADONE SCREEN NEGATIVE (Neg); URINE OPIATE SCREEN NEGATIVE (Neg); URINE PHENCYCLIDINE SCREEN NEGATIVE (Neg)
--- NOTE | 2022-04-08 15:43 | NUR ---
IF PT. IS D/C, CALL SON OR DAUGHTER (BOTH LIVE IN [place]). PT'S HAS DEMENTIA AND SHOULD NOT BE DRIVING. ANGELIA (DAUGHTER): [phone] WENDI (SON): [phone]
[2022-04-08] MEDS: buPROPion SR 150mg tablet PO SCH (20:16)
[2022-04-08] MEDS: amLODIPine 5mg tablet PO SCH (20:16)
[2022-04-08] MEDS: PARoxetine 10mg tablet PO SCH (20:17)
--- NOTE | 2022-04-09 03:14 | NUR ---
ASSUMED CARE FROM GAMALIEL CANTOR.
[2022-04-09] MEDS ORDERED: Melatonin 3mg tablet PO SCH (03:35)
[2022-04-09] MEDS ORDERED: diphenhydrAMINE 25mg capsule PO ONE (03:35)
--- NOTE | 2022-04-09 07:13 | NUR ---
PT IS RESTING WELL AND IS SAFE IN ROOM. nO DISTRESS NOTED AT THIS TIME. pT IS EATING GRAM CRACKERS AND RESTING IN BED.
[2022-04-09] MEDS: buPROPion SR 150mg tablet PO SCH ×2 (08:10→20:25)
[2022-04-09] MEDS: pantoprazole 40mg Tablet.DR PO SCH (08:10)
[2022-04-09] MEDS ORDERED: QUEtiapine 25mg tablet PO ONE ×2 (14:25→23:50)
--- NOTE | 2022-04-09 16:48 | NUR ---
called family to get wound Vac child welfare specialist, no has answered the phone. Wound vac is not on because it has no batteries
--- NOTE | 2022-04-09 17:15 | NUR ---
Patient arrived from the main ED.
--- NOTE | 2022-04-09 17:30 | NUR ---
Patient brought over from Main ED 14 to ED Overflow bed 21. Patient has a wound vac to buttocks area and the battery . Son arrived a few minutes after patient. Patient states we haven't done anything to help her and we haven't changed her medication. RN explained to patient and son that this is a holding area while [facility] looks for placement to a psychiatric facility. Patient states "I won't get transferred anywhere because I have a colostomy and a wound vac. RN explains that there are some facilities that take medical patients. Patient has a 5150 written on 04/08/22 at 1022. 5150 expires on 04/11/22 at 1022. RN explained to the son and patient that if the 5150 expires without placement. The patient would be re-evaluated and would either be released or placed on another 5150. Son, verbalized understanding.
--- NOTE | 2022-04-09 18:21 | NUR ---
Patient eating dinner. No distress observed. Continue to monitor.
[2022-04-09] MEDS: PARoxetine 10mg tablet PO SCH (20:25)
[2022-04-09] MEDS: Melatonin 3mg tablet PO SCH (20:26)
[2022-04-09] MEDS: amLODIPine 5mg tablet PO SCH (20:30)
--- NOTE | 2022-04-09 21:22 | NUR ---
GENERAL ASSESSMENT REVIEWED
--- NOTE | 2022-04-10 06:35 | NUR ---
Sleeping supine; no apparent distress. Continue to monitor.
[2022-04-10] MEDS: buPROPion SR 150mg tablet PO SCH ×2 (08:12→20:13)
[2022-04-10] MEDS: pantoprazole 40mg Tablet.DR PO SCH (08:12)
--- NOTE | 2022-04-10 08:30 | NUR ---
Pt ate breakfast in bed. Fresh water at bedside. No c/o pain. Compliant with medication administration. Resting in no apparent distress. Will continue to monitor.
--- NOTE | 2022-04-10 10:00 | NUR ---
Wound care in to assess patient sacral PU. Old wound vac dressings removed; dressing applied by IP Wound care team. Colostomy bag changed by IP wound care. Pt tolerated treatment well. Will continue to monitor.
--- NOTE | 2022-04-10 10:48 | NUR ---
Pt sister at bedside to visit, brought in wound vac battery and patient sticker applied. Pt stating to sister she is going home today or tomorrow. In no apparent distress. Will continue to monitor.
--- NOTE | 2022-04-10 12:57 | NUR ---
Pt sitting in bed with head elevated. Ate lunch. No c/o pain/distress. Will continue to monitor.
--- NOTE | 2022-04-10 13:50 | NUR ---
RN spoke with [facility], Dr. Rankin's office and made an appointment for with patient at RN's side. Patient agreed to appointment tomorrow at 1420. Patient stated she wants assessment/medication for insomnia and anxiety. Patient stated her sister would take her to the appointment. Patient was calm and cooperative. No distress observed.
--- NOTE | 2022-04-10 15:20 | NUR ---
Pt found to be picking at colostomy; leaking from bottom. This WASTE MACHINE OPERATOR cleaned and applied new bag. Pt tolerated treatment well. Will continue to monitor.
--- NOTE | 2022-04-10 16:23 | NUR ---
Pt found to be picking at colostomy; leaking from bottom. This MEDICAL RECORD LIBRARIAN cleaned and applied new bag; educated patient regarding manipulating bag. Pt tolerated treatment well. Will continue to monitor.
--- NOTE | 2022-04-10 17:58 | NUR ---
Pt in bed supine asleep. Appears to be resting well. Water at bedside. Appears to be resting well. Will continue to monitor.
[2022-04-10] MEDS ORDERED: Dakins solution (1/4 strength) 473ml solution TP SCH (20:00)
[2022-04-10] MEDS: Melatonin 3mg tablet PO SCH (21:15)
[2022-04-10] MEDS: amLODIPine 5mg tablet PO SCH (21:16)
[2022-04-10] MEDS: PARoxetine 10mg tablet PO SCH (21:16)
--- NOTE | 2022-04-10 22:17 | NUR ---
GENERAL ASSESSMENT REVIEWED
[2022-04-11] MEDS ORDERED: QUEtiapine 25mg tablet PO ONE (00:55)
[2022-04-11] MEDS ORDERED: QUEtiapine 25mg tablet PO SCH (00:55)
--- NOTE | 2022-04-11 01:00 | NUR ---
PT REQUESTED A NIGHT TIME DOSE OF SEROQUIL. INFORMED PO MED GIVEN
[2022-04-11 05:40] VITALS: BP 135/80
--- NOTE | 2022-04-11 06:33 | NUR ---
Patient sleeping on left side. No distress observed. Continue to monitor.
[2022-04-11] MEDS: buPROPion SR 150mg tablet PO SCH (08:32)
[2022-04-11] MEDS: pantoprazole 40mg Tablet.DR PO SCH (08:32)
== END 2022-04-11 11:00 | disposition home or self-care (01) ==
LOC: ER 10:47
DX: R45.851 Suicidal ideations (principal); Z20.822 Contact with and (suspected) exposure to COVID-19; J44.9 Chronic obstructive pulmonary disease, unspecified; I10 Essential (primary) hypertension; G89.29 Other chronic pain; M54.9 Dorsalgia, unspecified; F31.9 Bipolar disorder, unspecified; Z90.49 Acquired absence of other specified parts of digestive tract; Z91.040 Latex allergy status; Z88.8 Allergy status to other drugs, medicaments and biological substances; Z79.899 Other long term (current) drug therapy
CPT/HCPCS: 36415; 80053; 80305; 80320; 81003; 84443; 85025; 87811; 99285; Q0163; A4649; A6213; A6449

== ENCOUNTER 2023-07-08 06:14 | Day surgery (SDC) | payer MEDICARE ==
[2023-07-03 15:20] LABS: BASOPHILS # (AUTO) 0.1 X10'3 (0-0.2); BASOPHILS % (AUTO) 0.6 % (0-1); EOSINOPHILS # (AUTO) 0.2 X10'3 (0-0.9); EOSINOPHILS % (AUTO) 1.8 % (0-6); LYMPHOCYTES # (AUTO) 1.8 X10'3 (1.1-4.8); LYMPHOCYTES % (AUTO) 15.7 % (21-51); MEAN CORPUSCULAR HEMOGLOBIN 31.7 PG (27.0-31.0); MEAN CORPUSCULAR HGB CONC 33.6 g/dL (33.0-36.5); MEAN CORPUSCULAR VOLUME 94.2 FL (78-98); MEAN PLATELET VOLUME 6.4 FL (7.4-10.4); MONOCYTES # (AUTO) 0.9 X10'3 (0-0.9); MONOCYTES % (AUTO) 7.6 % (2-12); NEUTROPHILS # (AUTO) 8.7 X10'3 (1.8-7.7); NEUTROPHILS % (AUTO) 74.3 % (42-75); PRE OP HEMOGLOBIN 12.4 g/dL (12.0-16.0); PRE OP PLATELET COUNT 379 X10'3 (140-440); PRE OP WHITE BLOOD COUNT 11.8 10'3 (4.8-10.8); RED BLOOD COUNT 3.93 X10'6 (4.20-5.60); RED CELL DISTRIBUTION WIDTH 14.4 % (11.5-14.5)
[2023-07-03 15:34] LABS: ALBUMIN 3.7 G/DL (3.4-5.0); ALBUMIN/GLOBULIN RATIO 0.8 (1.1-1.5); ALKALINE PHOSPHATASE 109 IU/L (46-116); BLOOD UREA NITROGEN 13 MG/DL (7-18); BUN/CREATININE RATIO 13.5 (10.0-20.0); CALCIUM 9.9 MG/DL (8.5-10.1); CHLORIDE 97 MMOL/L (99-107); CREATININE 0.96 MG/DL (0.40-0.90); PRE OP ALT 24 U/L (30-65); PRE OP ANION GAP 9 (8-16); PRE OP AST 30 U/L (10-37); PRE OP BILIRUB, TOTAL 0.3 MG/DL (0.0-1.0); PRE OP GLUCOSE 109 MG/DL (70-104); PRE OP POTASSIUM 3.5 MMOL/L (3.4-5.1); PRE OP SODIUM 135 MMOL/L (135-145); TOTAL CARBON DIOXIDE 28.6 MMOL/L (24-32); TOTAL PROTEIN 8.5 G/DL (6.4-8.2); eGFR 57 ML/MIN
[~2023-07-08] VITALS: Ht 165.1 cm; Wt 66.1 kg
[2023-07-08] VITALS (7 sets, daily range): BP systolic 124–158; BP diastolic 74–89; PULSE 74–88; RESP 13–16; TEMP 98.6; O2SAT 94–96
[2023-07-08] MEDS: cefazolin 2gm/D5W 100mL 100 ML IV ONE (05:30)
[~2023-07-08 06:14] MED LIST changes: -ALBU18HF2 INH; -EREN70AU2 SQ; +IBUPROFEN; -MAGN400T56 PO; +MULT-1219 PO; -MULT-25 PO; -NALO4SPR; -OMEG1CAP21 PO; -ONDA4TAB6 PO; -PARO-153 PO; +PARO40TA4 PO; +QUET50TA24 PO; +TUMS; -VITA1TAB37 PO
[2023-07-08] MEDS ORDERED: LIDOcaine 2% (20mg/ml) 5ml vial ONE ×2 (07:10)
[2023-07-08] MEDS ORDERED: BUPIVAcaine/PF 2.5mg/ml (0.25%) 10ml vial ONE (07:11)
[2023-07-08] MEDS ORDERED: ringers solution, lacted 1,000 ML IV SCH (08:00)
[2023-07-08] MEDS ORDERED: proCHLORperazine 10 MG/2 ml inj IV PRN (08:00)
[2023-07-08] MEDS ORDERED: meperidine/PF 25mg/ml syringe IV PRN ×3 (08:00)
[2023-07-08] MEDS ORDERED: morphine 4 MG/ML inj SYRINge IV PRN (08:00)
[2023-07-08] MEDS ORDERED: morphine 2 MG/ML inj. syringe IV PRN (08:00)
[2023-07-08] MEDS ORDERED: ondansetron/PF 4mg/2ml inj IV PRN (08:00)
[2023-07-08] MEDS: famotidine 20mg tablet PO ONE (08:15)
[2023-07-08] MEDS: ringers solution, lacted 1,000 ML IV SCH (08:15)
[2023-07-08] MEDS ORDERED: midazolam 1 mg/ML 2ml injection ONE (08:57)
[2023-07-08] MEDS ORDERED: fentaNYL/PF 50MCG/1 ML 2ML syringe ONE (08:57)
[2023-07-08] MEDS ORDERED: LIDOcaine 0.5% (5mg/ml) 50ml vial ONE (08:57)
[2023-07-08] MEDS ORDERED: propofol 10mg/ml 20ml vial IV ONE (09:01)
[2023-07-08] MEDS: BUPIVAcaine/PF 2.5mg/ml (0.25%) 10ml vial IJ ONE ×2 (09:26→09:45)
== END 2023-07-08 10:46 | disposition home or self-care (01) ==
LOC: PAS 06:14
PROVIDERS: ATTEND Orthopaedic Surgery Hand Surgery
DX: M72.0 Palmar fascial fibromatosis [Dupuytren] (principal); I10 Essential (primary) hypertension; I20.9 Angina pectoris, unspecified; K21.9 Gastro-esophageal reflux disease without esophagitis; F41.9 Anxiety disorder, unspecified; F32.A Depression, unspecified; I25.2 Old myocardial infarction; M19.90 Unspecified osteoarthritis, unspecified site; Z79.1 Long term (current) use of non-steroidal anti-inflammatories (NSAID); Z79.899 Other long term (current) drug therapy; Z98.890 Other specified postprocedural states; Z88.8 Allergy status to other drugs, medicaments and biological substances; Z82.3 Family history of stroke
CPT/HCPCS: 26121; 26437; 36415; 80053; 82948; 85025; 93005; A6222; J0690; J2250; J2704; J3010; J3490; J7030; J7120; Z7506; Z7512; A4215; A6449; A7000

== ENCOUNTER 2024-07-21 14:23 | Emergency (ER) | payer MEDICARE ==
[~2024-07-21] VITALS: Ht 165.1 cm; Wt 50.0 kg
[~2024-07-21 14:23] MED LIST changes: +CALC500T13 PO; +HYDR12.55 PO; +IBUP-2417 PO; -IBUPROFEN; +LISI10TA27 PO; +OXYC10TA47 PO; -TUMS
[2024-07-21 15:10] VITALS: TEMP 98.5
[2024-07-21 16:37] VITALS: PULSE 91; RESP 30
[2024-07-21 16:43] VITALS: BP 148/78; PULSE 98; RESP 20; O2SAT 96
== END 2024-07-21 17:29 | disposition home or self-care (01) ==
LOC: ER 14:24
DX: Z43.3 Encounter for attention to colostomy (principal); I12.9 Hypertensive chronic kidney disease with stage 1 through stage 4 chronic kidney disease, or unspecified chronic kidney disease; F32.A Depression, unspecified; F41.9 Anxiety disorder, unspecified; J44.9 Chronic obstructive pulmonary disease, unspecified; M19.90 Unspecified osteoarthritis, unspecified site; N18.9 Chronic kidney disease, unspecified; Z88.8 Allergy status to other drugs, medicaments and biological substances; Z90.710 Acquired absence of both cervix and uterus; Z91.040 Latex allergy status
CPT/HCPCS: 94760; 99284

== ENCOUNTER → 2024-08-20 | Outpatient (CLI) | payer MEDICARE ==
[2024-08-19 15:36] LABS: ALBUMIN 2.9 G/DL (3.4-5.0); ANION GAP 7 (8-16); BLOOD UREA NITROGEN 12 MG/DL (7-18); BUN/CREATININE RATIO 11.3 (10.0-20.0); CHLORIDE 96 MMOL/L (99-107); CREATININE 1.06 MG/DL (0.40-0.90); GLUCOSE 88 MG/DL (70-104); POTASSIUM 3.8 MMOL/L (3.5-5.1); SODIUM 132 MMOL/L (135-145); TOTAL CARBON DIOXIDE 28.6 MMOL/L (24-32); eGFR 51 ML/MIN
--- NOTE | 2024-08-20 16:00 | RADIOLOGY REPORT ---
EXAM: CT CT CHEST ABDOMEN PELVIS INDICATION: S/P DIAPHRAGMATIC HERNIA REPAIR TECHNIQUE: Volumetric multidetector CT images of the chest, abdomen and pelvis were obtained after th e administration of IV contrast. All CT scans at this facility use dose modulation, iterative reconst ruction, and/or weight based dosing when appropriate to reduce radiation dose to as low as reasonably achievable. COMPARISON: CT CT ABDOMEN PELVIS W/ IV CONTRAST on DOS: 06/08/24 FINDINGS: LOWER NECK: Tracheostomy tube in place LYMPH NODES/MEDIASTINUM: No abnormal lymph nodes by CT size criteria. CARDIOVASCULAR: Normal cardiac size. Small pericardial effusion. No aneurysmal dilatation of the grea t vessels. Coronary artery calcifications. LUNG PARENCHYMA/PLEURAL SPACE: Small left-sided pleural effusion left-sided volume loss. No large co nsolidation. CHEST WALL: Unremarkable. LIVER: Normal hepatic size without suspicious focal lesion. GALLBLADDER/BILIARY TREE: No cholelithiasis. SPLEEN: Unremarkable. PANCREAS: Unremarkable. ADRENAL GLANDS: Unremarkable KIDNEYS: Mild left pelviectasis and/or extrarenal pelvis. BLADDER: Unremarkable for the degree distention. PELVIC ORGANS: Unremarkable. BOWEL/MESENTERY: Oral contrast in the distal esophagus. Suspected sliding hiatal hernia. Postoperat kellen changes to the stomach. Distal circumferential to proximal esophageal wall thickening. Correlate for chronic reflux. Underlying esophagitis not excluded. Status post diaphragmatic hernia repair wit h possible gastroesophageal pull-through versus recurrent hernia. ASCITES: Absent LYMPHADENOPATHY: No pathologically enlarged lymph nodes by CT size criteria VASCULATURE: No aneurysmal dilatation. ABDOMINAL WALL: Small fat containing right inguinal hernia MUSCULOSKELETAL: No acute fracture or aggressive focal osseous lesion. Multifocal degenerative change of the visualized spine. IMPRESSION: 1. Reportedly status post prior diaphragmatic hernia repair with the appearance of proximal herniatio n of the stomach versus sequelae of gastric pull-through. Significant oral contrast within the major ity of the thoracic esophagus correlate for concomitant esophagitis. Consideration for recurrent tyshawn ia. 2. Atelectasis in bilateral lung bases. Trace pericardial effusion.
== END | disposition home or self-care (01) ==
LOC: RAD 14:44
PROVIDERS: ATTEND Surgery
DX: J90 Pleural effusion, not elsewhere classified (principal); G89.12 Acute post-thoracotomy pain; J98.11 Atelectasis; J18.1 Lobar pneumonia, unspecified organism; I51.7 Cardiomegaly; I31.39 Other pericardial effusion (noninflammatory); M16.0 Bilateral primary osteoarthritis of hip; M43.17 Spondylolisthesis, lumbosacral region
CPT/HCPCS: 36415; 71250; 74176; 80048

== ENCOUNTER 2024-10-01 10:18 | Outpatient (CLI) | payer MEDICARE ==
[~2024-10-01 10:18] MED LIST changes: -AMLO10TA13 PO; +ASCO500C17 PO; -CALC500T13 PO; +CHOL400T PO; +HYALURONIC ACID PO; -HYDR12.55 PO; -IBUP-2417 PO; +LABE300T4 PO; -LISI10TA27 PO; +MAGN200T PO; +ONDA-243 PO; +VITA1CAP45 PO
--- NOTE | 2024-10-01 11:35 | RADIOLOGY REPORT ---
Indication: FEMALE PELVIC PERITONITIS Technique: CT axial images of the abdomen and pelvis are obtained without contrast. Coronal and sagit stephy reformats were obtained. Radiation Dose Information: CTDI volume is 9.6 mGy. Dose-length product is 476 mGy*cm Comparison: CT CT ABDOMEN PELVIS W/ IV ORAL CONTRAST on DOS: 09/02/24, FINDINGS: There is limited interpretation of the abdomen and pelvis without administration of intravenous contr ast. Small pericardial effusion. Borderline cardiomegaly. Large hiatal hernia. Small bilateral pleural eff usions, [id number]. Adrenal glands, spleen, pancreas and liver unremarkable in shape. No CT evidence for cholelithiasis. No hydronephrosis /nephrolithiasis. Left renal extrarenal pelvis. Redemonstration of large hiatal hernia. Small bowel loops demonstrate dilatation of the right pelvis up to 5.47 otherwise normal in caliber. Postsurgical changes proximal sigmoid colon. Left ostomy. Abdominal aortic atherosclerotic disease and tortuosity. Bladder distended. No inguinal lymphadenopat hy. Left upper quadrant pigtail drainage catheter. There is surrounding soft tissue density by interval near resolution of the previously described collection. There is tethering of the mesentery in this r egion. Right upper quadrant pigtail drainage catheter without significant fluid collection. There is a comminuted fracture of the right femur greater trochanter. There is thoracolumbar levocurv ature. IMPRESSION: Bilateral upper abdominal drainage catheters without significant residual fluid collection. There is extensive soft tissue thickening and tethering in the left upper quadrant in the region of the previ ous collection. This could be secondary to scarring although a residual lesion/ mass can not be ruled out. Correlate clinically. Right femur greater trochanter fracture also described on 09/15/2024. Large hiatal hernia. Bilateral pleural effusions as described. Short segment small bowel dilatation in the right lower abdomen/ pelvis measuring 5.3 cm, similar to previous examination. Other findings as described.
== END 2024-10-01 23:59 | disposition home or self-care (01) ==
LOC: RAD 10:18
PROVIDERS: ATTEND Specialist
DX: J90 Pleural effusion, not elsewhere classified (principal); K44.9 Diaphragmatic hernia without obstruction or gangrene; N73.5 Female pelvic peritonitis, unspecified
CPT/HCPCS: 74176

== ENCOUNTER 2024-11-25 23:43 | Emergency (ER) | payer MEDICARE ==
[~2024-11-25] VITALS: Ht 160 cm; Wt 49.1 kg
[2024-11-25 23:49] VITALS: TEMP 98.9
--- NOTE | 2024-11-26 00:16 | RADIOLOGY REPORT ---
CHEST RADIOGRAPH Indication: SOB Technique: 1 view Comparison: DI CHEST,SINGLE VIEW on DOS: 09/14/24, DI CHEST,SINGLE VIEW on DOS: 09/04/24, DI CHEST,SINGL E VIEW on DOS: 09/04/24, DI CHEST,SINGLE VIEW on DOS: 09/03/24, DI CHEST,SINGLE VIEW on DOS: 09/02/24 FINDINGS: Patient is rotated. Lines and Tubes: None Lungs/Pleura: Geometric opacities overlying the central chest are likely external to the patient. No evidence of acute consolidation or pleural abnormality. Cardiomediastinum: Not well assessed, no obvious cardiomegaly. Chronic rightward course of the trache a. Other: No acute osseous abnormality. IMPRESSION: 1. Limited exam without acute abnormality identified.
[2024-11-26 00:20] LABS: MEAN PLATELET VOLUME 6.1 FL (7.4-10.4); RED CELL DISTRIBUTION WIDTH 14.5 % (11.5-14.5)
[2024-11-26 00:41] LABS: CREATININE 0.86 MG/DL (0.40-0.90); PRO BRAIN NATRIURETIC PEPTIDE 622 PG/ML (0-125); TOTAL CARBON DIOXIDE 27.9 MMOL/L (24-32); eCRCL 45 ML/MIN; eGFR 65 ML/MIN
[2024-11-26 00:42] VITALS: O2SAT 95
--- NOTE | 2024-11-26 01:12 | Physician Documentation ---
History of Present Illness ~ Chief Complaint: Respiratory Distress Stated Complaint: SOB M ALS Time Seen by MD: 23:50 Primary Medical Doctor: Della Rizo MD HPI Patient presents to the emergency room in respiratory distress giving shortness of breath. She reports that she had a trach placed some time ago and she is scheduled to have it removed however there has been some scar tissue buildup delay in the process. Patient now breathe just fine without using in her trach in has her trach capped off. Unfortunately, she lost the cap 1-2 days ago and has been having throat irritation and coughing since. This is what prompted her to come to the emergency room Medication Reconciliation Allergies: Coded Allergies: Latex, Natural Rubber (Verified Allergy, Intermediate, RASH, ITCHING, 11/25/24) lactose (Verified Allergy, Unknown, 11/25/24) Scheduled Ascorbic Acid (Vitamin C), 1 CAP PO DAILY, (Reported) B Complex with Vitamin C (Super B with Vit C), 1 CAP PO DAILY, (Reported) Bupropion Hcl SR* (Wellbutrin SR*), 1 TAB PO BID, (Reported) Cholecalciferol (Vitamin D3) (Vitamin D3), 2 TAB PO DAILY, (Reported) Labetalol Hcl (Labetalol Hcl), 1.5 TAB PO BID, (Reported) Magnesium (Magnesium), 2 TAB PO DAILY, (Reported) Multivitamin (One-Daily Multi-Vitamin), 1 TAB PO DAILY, (Reported) Omeprazole (Omeprazole), 1 CAP PO DAILY, (Reported) Omeprazole (Omeprazole), 1 CAP PO DAILY, (Reported) Paroxetine HCl (Paroxetine HCl), 1 TAB PO DAILY, (Reported) Quetiapine Fumarate (Quetiapine Fumarate), 250 MG PO HS, (Reported) [Hyaluronic Acid], 1 TAB PO DAILY, (Reported) Scheduled PRN ONDANSETRON ODT 4mg tablet (Ondansetron Odt), 1 TAB PO Q6H PRN for nausea/vomiting, (Reported) Oxycodone Hcl (Oxycodone Hcl), 1 TAB PO Q6H PRN for pain, (Reported) Past Medical History Past Medical History: Headache, Hypertension, COPD, Pancreatitis, Hernia, Arthritis, Chronic Back Pain, *PSYCH*, Anxiety, Depression Past Surgical History: hysterectomy, other Patient History: Patient reports no known family medical history. Alcohol Use: Abuse Lives with: Spouse Lives In: Home Review of Systems ROS All review of systems negative except as per HPI Physical Exam Vital Signs: Temperature: 98.9, Source: Oral, Heart Rate: 104, Respiratory Rate: 22, BP: 119/72, Pulse Oximetry: 95, Weight: 49.090 Oxygen Flow Rate: 12.0 Physical Exam General: Patient is awake, alert, oriented x4 in mild distress Head: Normocephalic and atraumatic. Eyes: Conjunctival normal. EOMI. PERRL. ENT: Mucous membranes moist. Neck: Supple, trachea is midline. Trach in place with no signs of infection. No cap Chest: Clear to auscultation bilaterally without rales, rhonchi, or wheezes. Significant coughing and gasping Cardiac: RRR without murmurs, gallops, or rubs. Progress Results/Orders Results/Orders Orders - DAMON BRODERICK MD Electrocardiogram (11/25/24 23:50) Chest,Single View (11/25/24 00:05) Monitor (11/25/24 23:50) Hs Troponin I W Calculations (11/26/24 01:50) Hs Troponin I W Calculations (11/26/24 02:50) Completed Orders - DAMON BRODERICK MD Lorazepam Inj (Ativan Inj) (11/25/24 23:50) Cbc/Diff (11/25/24 23:50) Chest,Single View (11/25/24 00:05) PBNP (11/25/24 23:50) BMP (11/25/24 23:50) Hs Troponin I W Calculations (11/25/24 23:50) Medications Received in ER Medications (Trade) Dose Ordered Sig/Gordy Route PRN Reason Start Time Stop Time Status Last Admin Dose Admin (Ativan inj) 1 mg ONCE ONCE IV 11/25/24 23:50 11/25/24 23:53 DC 11/26/24 00:00 1 MG Vital Signs 11/25/24 11/25/24 11/26/24 11/26/24 23:49 23:49 00:31 00:32 Temp 98.9 Pulse 112 113 104 Resp 24 28 22 B/P (MAP) 150/83 (105) 146/76 119/72 (88) Pulse Ox 96 96 94 96 O2 Flow Rate 10.0 12 12.0 FiO2 N/A 40 11/26/24 11/26/24 00:40 00:42 Pulse Ox 95 O2 Delivery Cool/Heated Aerosol Mist+ O2 Flow Rate 12 FiO2 40 40 Laboratory Tests Test 11/26/24 00:09 White Blood Count 8.7 Red Blood Count 3.51 L Hemoglobin 10.4 L Hematocrit 30.3 L Mean Corpuscular Volume 86.3 Mean Corpuscular Hemoglobin 29.6 Mean Corpuscular Hemoglobin Concent 34.3 Red Cell Distribution Width 14.5 Platelet Count 346 Mean Platelet Volume 6.1 L Neutrophils (%) (Auto) 73.9 Lymphocytes (%) (Auto) 14.1 L Monocytes (%) (Auto) 8.9 Eosinophils (%) (Auto) 2.1 Basophils (%) (Auto) 1.0 Neutrophils # (Auto) 6.4 Lymphocytes # (Auto) 1.2 Monocytes # (Auto) 0.8 Eosinophils # (Auto) 0.2 Basophils # (Auto) 0.1 CBC Comment Sodium Level 132 L Potassium Level 4.0 Chloride Level 98 L Carbon Dioxide Level 27.9 Anion Gap 6 L Blood Urea Nitrogen 13 Creatinine 0.86 Estimated GFR/1.73 m2 65 BUN/Creatinine Ratio 15.1 Glucose Level 113 H Calcium Level 8.4 L Troponin I High Sensitivity 16 Pro-B-Type Natriuretic Peptide 622 H Albumin 3.5 Chemistry Comments EKG/XRAY/CT/US/VASC/MRI EKG : Additional Comment EKG interpreted by myself shows time of 06/19/2055, rate 116, sinus tachycardia, left axis deviation, no ST changes Medical Decision Making Findings Patient presented to the emergency room with breathing difficulty as per HPI. Differentials include but are not limited to choking, bronchitis, tracheotomy malfunction, anxiety, ACS therefore emergent labs and imaging ordered. Labs and imaging are reassuring. I have personally made a tape cap for patient's tracheostomy and she is now feeling much better. She has been instructed to go to [facility] tomorrow to see if they have a cap that fits. Departure Disposition: HOME / SELF CARE / HOMELESS Impression: Primary Impression: Acute respiratory distress Condition: Improved Discharge Instructions: Shortness of Breath, Adult Additional Instructions: Follow up at [facility] [place] tomorrow to see if they have a calf that fits your tracheotomy. Call your doctor to arrange for follow up as well. Referrals: NO PRIMARY CARE PROVIDER (PCP) Signature Scribe Signature: No scribe Attestation: The note accurately reflects work and decisions made by me.Damon Broderick MD 11/26/24 01:13 DAMON BROEDRICK MD Nov 26, 2024 01:12
[2024-11-26] MEDS: diazepam inj 5 MG/ML inj. IV ONE (04:30)
--- NOTE | 2024-11-26 06:32 | ELECTROCARDIOGRAPH REPORT ---
[facility] Test Date: 2024-11-25 Test Time: 23:56:23 Pat Name: JANNIE SALAS Department: EMERGENCY ROOM [id number] Room: Gender: F Manager Meeting: : 1950 Requested By: NATALYA FINN Order Number: [id number] Reading MD: Measurements Intervals Rudyard Rate: 116 P: 23 ND: 173 QRS: -72 QRSD: 90 T: 62 QT: 330 QTc: 459 Interpretive Statements Sinus tachycardia Markedly posterior QRS axis Borderline ST depression, lateral leads Baseline wander in lead(s) II,III,aVF Please click the below link to view image of tracing.
[2024-11-26] MEDS: midazolam 1 mg/ML 2ml injection IV ONE (09:06)
[2024-11-26] MEDS: fentaNYL/PF 50MCG/1 ML 2ML syringe ONE (09:16)
[2024-11-26] MEDS: fentaNYL/PF 50MCG/1 ML 2ML syringe IV ONE (09:23)
[2024-11-26 11:07] VITALS: BP 132/76; PULSE 100; RESP 18; O2SAT 100
== END 2024-11-26 11:11 | disposition home or self-care (01) ==
LOC: ER 23:43
DX: R06.03 Acute respiratory distress (principal); I10 Essential (primary) hypertension; J44.9 Chronic obstructive pulmonary disease, unspecified; F41.9 Anxiety disorder, unspecified; M19.90 Unspecified osteoarthritis, unspecified site; Z88.8 Allergy status to other drugs, medicaments and biological substances; Z91.040 Latex allergy status; Z90.710 Acquired absence of both cervix and uterus
CPT/HCPCS: 36415; 71045; 80048; 83880; 84484; 85025; 93005; 94760; 96374; 96375; 96376; 99285; A4615; A4620; A4624; A6402; C1758; J2060; J2250; J3010; A6449

== ENCOUNTER 2024-12-15 11:34 | Outpatient (CLI) | payer MEDICARE ==
--- NOTE | 2024-12-15 13:04 | RADIOLOGY REPORT ---
Exam: CT CT ABDOMEN PELVIS W/ ORAL CONTRAST History: COLOSTOMY STATUS Comparison Study: CT CT ABDOMEN PELVIS W/ ORAL CONTRAST on DOS: 10/01/24 Technique: Multidetector spiral CT of the abdomen and pelvis was performed from lung bases to pubic symphysis. Imaging was performed without intravenous contrast. Coronal and sagittal multiplanar reformats were obtained from the axial data set by the technologist. Radiation Dose : 1. Abdomen/Pelvis: CTDIvol 5.9 mGy, DLP 7.9 mGy*cm. Findings: Evaluation of vasculature and solid organs is limited due to lack of intravenous contrast use. Lung Bases: Bibasilar atelectasis. Coronary artery calcifications. Trace pericardial effusion. The heart is normal in size. Liver: The liver is normal in size. No focal lesions. There is a surgical clip along the caudal aspect. Gallbladder and Biliary Tree: The gallbladder is unremarkable appearing No intrahepatic or extrahepatic biliary ductal dilatation. Spleen: Unremarkable Pancreas: The pancreas is grossly unremarkable. Adrenal Glands: Unremarkable Kidneys: Kidneys are unremarkable without calculi or hydronephrosis. GI tract: There is a large hiatal hernia. There is enteric contrast in the stomach and in the proximal small bowel. The distal small bowel loops are underdistended. There is a partial colectomy with a left upper quadrant colostomy. There is no contrast seen in the colostomy. There is significant wall thickening of the colostomy which contains stool. No findings to suggest acute appendicitis. Peritoneum/mesentery/retroperitoneum. No evidence of free intraperitoneal air. No ascites. No evidence of suspicious lymphadenopathy. Abdominal Wall: Unremarkable. Vasculature: The visualized abdominal aorta is normal in size and caliber. Evaluation of abdominal and pelvic vessels is limited due to lack of intravenous contrast. Urinary Bladder: Grossly unremarkable for degree of distention. Pelvic Organs: Unremarkable Musculoskeletal: There is a similar-appearing fracture of the right greater trochanter. There soft tissue density within the right greater trochanter and pathologic fracture is not excluded. S shaped scoliosis. IMPRESSION: 1. Partial colectomy with a left upper quadrant colostomy. 2. There is significant wall thickening of the left upper quadrant colostomy which contains stool. No contrast is identified in the colostomy. Obstruction is not excluded. 3. Large hiatal hernia. 4. Similar-appearing fracture of the right greater trochanter with soft tissue density within the right greater trochanter. Pathologic fracture is not excluded.
== END 2024-12-15 23:59 | disposition home or self-care (01) ==
LOC: RAD 11:34
PROVIDERS: ATTEND Surgery
DX: K44.9 Diaphragmatic hernia without obstruction or gangrene (principal); Z93.3 Colostomy status; I25.10 Atherosclerotic heart disease of native coronary artery without angina pectoris; J98.11 Atelectasis
CPT/HCPCS: 74176

== ENCOUNTER 2025-01-29 09:27 | Emergency (ER) | payer MEDICARE ==
[~2025-01-29] VITALS: Ht 165.1 cm; Wt 52.0 kg
[~2025-01-29 09:27] MED LIST changes: +AMOX-580 PO; +CEFI400C4 PO; +CEPH750C7 PO; +etomidate 2mg/ml inj. ONE
--- NOTE | 2025-01-29 09:54 | Physician Documentation ---
History of Present Illness ~ Chief Complaint: Foreign body Stated Complaint: CHOKING Time Seen by MD: 09:31 Primary Medical Doctor: Della Rizo 74-year-old female presenting for acute onset difficulty breathing. Patient has a chronic tracheostomy tube in place and was eating an egg sandwich this morning and feels like something got stuck in her airway. She self suctioned herself through the tube however she states that she feels like there is still something stuck which is making it hard for her to breathe. Prior to this she was feeling fine. The patient has a tracheostomy due to complications from a surgery. Sulma alcantar has also had other multiple surgeries done on her abdomen. No other complaints at this time. Medication Reconciliation Allergies: Coded Allergies: Latex, Natural Rubber (Verified Allergy, Intermediate, RASH, ITCHING, 01/29/25) adhesive (Verified Allergy, Intermediate, 01/29/25) lactose (Verified Allergy, Unknown, 01/29/25) Scheduled Amlodipine Besylate (Amlodipine Besylate), 1 TAB PO DAILY, (Reported) Ascorbic Acid (Vitamin C), 1 CAP PO DAILY, (Reported) B Complex with Vitamin C (Super B with Vit C), 1 CAP PO DAILY, (Reported) Bupropion Hcl SR* (Wellbutrin SR*), 1 TAB PO BID, (Reported) Cholecalciferol (Vitamin D3) (Vitamin D3), 2 TAB PO DAILY, (Reported) Magnesium (Magnesium), 1 TAB PO DAILY, (Reported) Multivitamin (One-Daily Multi-Vitamin), 1 TAB PO DAILY, (Reported) Omeprazole (Omeprazole), 1 CAP PO DAILY, (Reported) Paroxetine HCl (Paroxetine HCl), 1 TAB PO DAILY, (Reported) Scheduled PRN ONDANSETRON ODT 4mg tablet (Ondansetron Odt), 1 TAB PO Q6H PRN for nausea/vomiting, (Reported) Oxycodone Hcl (Oxycodone Hcl), 1 TAB PO Q6H PRN for pain, (Reported) Discontinued Medications Amox Tr/Potassium Clavulanate 875/125 MG (Augmentin 875/125 MG), 1 TAB PO BID Discontinued Reason: patient no longer taking Cefixime (Cefixime), 1 CAP PO DAILY Discontinued Reason: patient no longer taking Cephalexin (Cephalexin), 1 CAP PO Q12H Discontinued Reason: patient no longer taking Labetalol Hcl (Labetalol Hcl), 1.5 TAB PO BID, (Reported) Discontinued Reason: patient no longer taking Omeprazole (Omeprazole), 1 CAP PO DAILY, (Reported) Discontinued Reason: patient no longer taking Quetiapine Fumarate (Quetiapine Fumarate), 250 MG PO HS, (Reported) Discontinued Reason: patient no longer taking [Hyaluronic Acid], 1 TAB PO DAILY, (Reported) Discontinued Reason: patient no longer taking Past Medical History Past Medical History: Headache, Hypertension, COPD, Pancreatitis, Hernia, Arthritis, Chronic Back Pain, *PSYCH*, Anxiety, Depression Past Surgical History: hysterectomy, other Patient History: Patient reports no known family medical history. Alcohol Use: Abuse Lives with: Spouse Lives In: Home Review of Systems All Other Systems at this time: Reviewed and Negative Physical Exam Vital Signs: Temperature: 98.6, Source: Axillary, Heart Rate: 100, Respiratory Rate: 34, BP: 128/68, Pulse Oximetry: 100, Weight: 52.000 Oxygen Flow Rate: 0 Physical Exam I have reviewed the triage vitals. CONST: In moderate distress. HENT: Head Atraumatic EYES: Pupils are equal, round and reactive to light. Normal conjunctiva NECK: Normal range of motion. Supple. Tracheostomy tube in the trachea. CARDIO: Normal rate and regular rhythm. No murmurs, rubs, or gallops. S1, S2. PULM/CHEST: Moderate respiratory distress. Stridorous sounds heard. Coarse breath sounds bilaterally. ABD: Soft and nontender. Nondistended. Bowel sounds normal. No guarding. : Exam deferred MSK: No edema. No deformity. NEURO: Alert and oriented to person, place and time. Moving all extremities SKIN: Warm and dry. PSYCH: Anxious Progress Results/Orders Results/Orders Orders - RENETTA AGUILA MD Chest,Single View (01/29/25 09:47) Neck For Soft Tissues (01/29/25 ) Completed Orders - RENETTA AGUILA MD Chest,Single View (01/29/25 09:47) Neck For Soft Tissues (01/29/25 ) Succinylcholine Inj (Quelicin Inj) (01/29/25 10:31) Medications Received in ER Medications (Trade) Dose Ordered Sig/Gordy Route PRN Reason Start Time Stop Time Status Last Admin Dose Admin (fentaNYL 0.05 MG/ML syringe) 50 mcg ONCE ONCE IV 01/29/25 10:35 01/29/25 10:36 DC 01/29/25 14:20 50 MCG Vital Signs 01/29/25 01/29/25 09:29 09:45 Temp 98.6 Pulse 100 Resp 34 38 B/P (MAP) 128/68 Pulse Ox 100 O2 Flow Rate 0 EKG/XRAY/CT/US/VASC/MRI Chest X-Ray : Additional Comments EXAM: DI CHEST,SINGLE VIEW Indication: pain Technique: Single frontal view of the chest was obtained Comparison: DI CHEST,SINGLE VIEW on DOS: 11/25/24, DI CHEST,SINGLE VIEW on DOS: 09/14/24, DI CHEST,SINGLE VIEW on DOS: 09/04/24, DI CHEST,SINGLE VIEW on DOS: 09/04/24, DI CHEST,SINGLE VIEW on DOS: 09/03/24 FINDINGS: Lines and Tubes: None Lungs: No focal consolidation. Pleura: No effusion. No pneumothorax. Cardiomediastinal contours: Unremarkable Bones: No acute osseous abnormality. IMPRESSION: No acute cardiopulmonary disease. Bone/Soft Tissue X-Ray (Ext.) : Additional Comment Procedure: DI NECK FOR SOFT TISSUES Exam Date: 01/29/2025 09:53 AM History: stridor Comparison Study: None Technique: Soft Tissue Neck: AP and lateral views. Findings: No evidence of soft tissue swelling or radiopaque foreign body. Epiglottis appears normal. Advanced multilevel degenerative changes of the spine. Impression: Negative soft tissue neck. : Impression Procedure: CT CT CHEST W/ IV CONTRAST 01/29/2025 01:32 PM History: tracheostomy blockage s/p bronch Comparison: CT CTA CHEST PE W/ IV CONTRAST on DOS: 09/01/24, CT CTA CHEST PE W/ IV CONTRAST on DOS: 08/25/24, CT CT CHEST ABDOMEN PELVIS on DOS: 08/20/24, CT CT CHEST W/ IV CONTRAST on DOS: 06/09/24, CT CHEST ABDOMEN PELVIS on DOS: 8/3/20 Technique: After the uneventful administration of contrast intravenously, CT imaging was performed through the chest. Coronal and sagittal reformations were performed by the technologist. Radiation Dose : CT Dose: CTDI volume is 12.98 mGy. Dose-length product is 160.16 mGy*cm CONTRAST: Type of contrast: Omnipaque 300 Contrast injected: 150 ml Findings: Lower neck: Normal thyroid. Lungs: No focal consolidation. Tracheostomy tube in-situ. Air column appears widely patent with no clear cause for blockage. Mild diffuse interlobular septal thickening. Heart/Vascular Structures: Normal heart size. No pericardial effusion. Lymph Nodes: No adenopathy Pleura: No pleural effusion or significant pneumothorax. Musculoskeletal: No acute osseous abnormality. Soft tissues: Normal. Upper abdomen: Prior gastric pull up procedure. Esophagus is fluid-filled and distended. IMPRESSION: No clear cause for tracheostomy blockage. Prior gastric pull up procedure with distended fluid-filled esophagus. No evidence for recent aspiration. Mild interstitial edema. : CT CT NECK SOFT TISSUES W/ IV CONTRAST INDICATION: tracheostomy blockage s/p bronch Exam Date: 01/29/2025 01:29 PM COMPARISON: DI NECK FOR SOFT TISSUES on DOS: 01/29/25 TECHNIQUE: CT of the neck with intravenous contrast. RADIATION DOSE: CTDIvol: 14.71 mGy, DLP: 444.68 mGy*cm CONTRAST: Type of contrast: Omnipaque 300 Contrast injected: 150 ml FINDINGS: There is no evidence of cervical mass lesion, pathologically enlarged lymph nodes or fluid collection. The fat planes of the neck appear intact. The airway and larynx are unremarkable. The parotid, submandibular and thyroid glands are unremarkable. The vascular structures of the neck appear patent. The visualized lung apices are clear. The limited visualized portions of the brain are unremarkable. The osseous structures are unremarkable. Fluid-filled distended esophagus. IMPRESSION: Tracheostomy tube appears intact with air column widely patent. No obstructing lesion or secretions are seen. Markedly distended fluid-filled esophagus. Heart Score: Heart Score Response (Comments) Value History N/A 0 EKG Normal 0 Age >65 2 Risk Factors N/A 0 Troponin N/A 0 Total 2 Medical Decision Making Additional information obtaine: N/A Findings na Heart Score: 0 Differential Dx:Considerations: Unlikely: anxiety, asthma, bronchitis, cardiogenic shock, CHF, COPD, dysrhythmia, hypertension, accelerated, hypertension, essential, hypertension, malignant, hyperventilation, hyponatremia, myocardial infarction, panic attack, pneumonia, pneumonitis, pneumothorax, PSVT, pulmonary embolism, respiratory distress, respiratory failure, sinusitis, upper resp. infection, other Additional Infomation 74-year-old female presenting with a blockage distal to her tracheostomy tube. Patient was in significant respiratory distress upon arrival. Dr. Zayas of Pulmonary/critical Care was consulted immediately. He performed a bronchoscopy and was able to remove the blockage. Prior to that a chest x-ray and a soft tissue neck CT failed to visualize the blockage. After the bronchoscopy the patient was able to breathe much better and return to her normal baseline function. We did perform a CT of the neck and chest which showed a patent ET tube with no signs of any surrounding bleeding or edema. Patient was observed in the ED for several hours and had no further issues. She remained at her baseline functional status. She was able to breathe through the trach tube without any difficulty. Patient has an appointment on Saturday with her specialist at [facility] and I advised her to keep this appointment. In the meantime she is stable and safe to go home. Advised to return immediately to the emergency department with any acutely worsening symptoms. Patient expressed full understanding of the assessment and plan and was amenable. Departure Disposition: 01 HOME / SELF CARE / HOMELESS Admission Level of Care: Critcal Care Impression: Primary Impression: Attention to tracheostomy tube Condition: Improved Additional Instructions: Please follow up closely with your doctor at [facility] on Saturday. In the meantime should your symptoms return please call 911 and return immediately to the emergency department. Please eat very slowly as to not irritate your tracheostomy tube. Referrals: NO PRIMARY CARE PROVIDER (PCP) Critical Care Note Total Time (mins): 39 Critical Care Note The very real possibility of a deterioration of this patient's condition required the highest level of my preparedness for sudden, emergent intervention. I provided critical care services, which included medication orders, frequent reevaluations of the patient's condition and response to treatment, ordering and reviewing test results, and discussing the case with various consultants. Excludes time spent performing separately billable procedures. The critical care time associated with the care of the patient was. Signature Scribe Signature: 1 Attestation: 1 RENETTA AGUILA MD Jan 29, 2025 09:54
--- NOTE | 2025-01-29 10:15 | RADIOLOGY REPORT ---
Procedure: DI NECK FOR SOFT TISSUES Exam Date: 01/29/2025 09:53 AM History: stridor Comparison Study: None Technique: Soft Tissue Neck: AP and lateral views. Findings: No evidence of soft tissue swelling or radiopaque foreign body. Epiglottis appears normal. Advanced multilevel degenerative changes of the spine. Impression: Negative soft tissue neck.
--- NOTE | 2025-01-29 10:18 | RADIOLOGY REPORT ---
EXAM: DI CHEST,SINGLE VIEW Indication: pain Technique: Single frontal view of the chest was obtained Comparison: DI CHEST,SINGLE VIEW on DOS: 11/25/24, DI CHEST,SINGLE VIEW on DOS: 09/14/24, DI CHEST,SINGLE VIEW on DOS: 09/04/24, DI CHEST,SINGLE VIEW on DOS: 09/04/24, DI CHEST,SINGLE VIEW on DOS: 09/03/24 FINDINGS: Lines and Tubes: None Lungs: No focal consolidation. Pleura: No effusion. No pneumothorax. Cardiomediastinal contours: Unremarkable Bones: No acute osseous abnormality. IMPRESSION: No acute cardiopulmonary disease.
[2025-01-29] MEDS ORDERED: magnesium hydroxide 30ml (MOM) UD suspension PO PRN (10:35)
[2025-01-29] MEDS ORDERED: ondansetron/PF 4mg/2ml inj IV PRN (10:35)
[2025-01-29] MEDS: MIDAZolam 1 MG/ML 5ML VIAL IV ONE (10:35)
[2025-01-29] MEDS ORDERED: LidoCAINE 2% Topical Jelly 11mL syringe (UROJET) TOP ONE (10:35)
[2025-01-29] MEDS ORDERED: morphine 4 MG/ML inj SYRINge IV PRN (10:35)
[2025-01-29] MEDS: fentaNYL/PF 50MCG/1 ML 2ML syringe ONE (10:36)
[2025-01-29] MEDS: MIDAZolam 5mg/ml 2ml vial ONE ×2 (10:36→10:48)
[2025-01-29] MEDS: midazolam 1 mg/ML 2ml injection IV ONE (10:40)
[2025-01-29 10:59] VITALS: PULSE 106; RESP 22; O2SAT 92
[2025-01-29] MEDS: succinylcholine 20mg/ml inj IV ONE (11:09)
--- NOTE | 2025-01-29 12:08 | PROCEDURE NOTE CC ---
Procedure Note CC Providers to CC ~ Procedure Name: Bronchoscopy Description: Consent: Pt TIme-out: Done Indication: Severe Resp Distress after food ingestion Sedation: Versed + Fentanyl Description: Bronchoscope introduced through R Nare. Thick brown secretions + food particles suction from above/below the Glottis. Pt has Tracheostomy in place. Pt without Resp Distress + 100% SpO2 on RA after procedure Sepsis Screening Reassessment Date: Jan 29, 2025 ISABEL HAAS MD Jan 29, 2025 12:08
[2025-01-29] MEDS ORDERED: AMLO10TA13 PO (12:09)
[2025-01-29 12:53] LABS: MEAN PLATELET VOLUME 6.5 FL (7.4-10.4); RED CELL DISTRIBUTION WIDTH 15.9 % (11.5-14.5)
[2025-01-29 12:59] LABS: CREATININE 0.65 MG/DL (0.40-0.90); TOTAL CARBON DIOXIDE 33.5 MMOL/L (24-32); eCRCL 63 ML/MIN; eGFR 89 ML/MIN
[2025-01-29] MEDS ORDERED: iohexol 300mg/ml 100ml inj. ONE (13:25)
[2025-01-29] MEDS ORDERED: iohexol 300 MG/1 ML 50ml polymer ONE (13:26)
--- NOTE | 2025-01-29 13:59 | RADIOLOGY REPORT ---
EXAM: CT CT NECK SOFT TISSUES W/ IV CONTRAST INDICATION: tracheostomy blockage s/p bronch Exam Date: 01/29/2025 01:29 PM COMPARISON: DI NECK FOR SOFT TISSUES on DOS: 01/29/25 TECHNIQUE: CT of the neck with intravenous contrast. RADIATION DOSE: CTDIvol: 14.71 mGy, DLP: 444.68 mGy*cm CONTRAST: Type of contrast: Omnipaque 300 Contrast injected: 150 ml FINDINGS: There is no evidence of cervical mass lesion, pathologically enlarged lymph nodes or fluid collection. The fat planes of the neck appear intact. The airway and larynx are unremarkable. The parotid, submandibular and thyroid glands are unremarkable. The vascular structures of the neck appear patent. The visualized lung apices are clear. The limited visualized portions of the brain are unremarkable. The osseous structures are unremarkable. Fluid-filled distended esophagus. IMPRESSION: Tracheostomy tube appears intact with air column widely patent. No obstructing lesion or secretions are seen. Markedly distended fluid-filled esophagus.
--- NOTE | 2025-01-29 14:09 | RADIOLOGY REPORT ---
Procedure: CT CT CHEST W/ IV CONTRAST 01/29/2025 01:32 PM History: tracheostomy blockage s/p bronch Comparison: CT CTA CHEST PE W/ IV CONTRAST on DOS: 09/01/24, CT CTA CHEST PE W/ IV CONTRAST on DOS: 08/25/24, CT CT CHEST ABDOMEN PELVIS on DOS: 08/20/24, CT CT CHEST W/ IV CONTRAST on DOS: 06/09/24, CT CHEST ABDOMEN PELVIS on DOS: 11/02/19 Technique: After the uneventful administration of contrast intravenously, CT imaging was performed through the chest. Coronal and sagittal reformations were performed by the technologist. Radiation Dose : CT Dose: CTDI volume is 12.98 mGy. Dose-length product is 160.16 mGy*cm CONTRAST: Type of contrast: Omnipaque 300 Contrast injected: 150 ml Findings: Lower neck: Normal thyroid. Lungs: No focal consolidation. Tracheostomy tube in-situ. Air column appears widely patent with no clear cause for blockage. Mild diffuse interlobular septal thickening. Heart/Vascular Structures: Normal heart size. No pericardial effusion. Lymph Nodes: No adenopathy Pleura: No pleural effusion or significant pneumothorax. Musculoskeletal: No acute osseous abnormality. Soft tissues: Normal. Upper abdomen: Prior gastric pull up procedure. Esophagus is fluid-filled and distended. IMPRESSION: No clear cause for tracheostomy blockage. Prior gastric pull up procedure with distended fluid-filled esophagus. No evidence for recent aspiration. Mild interstitial edema.
[2025-01-29] MEDS: fentaNYL/PF 50MCG/1 ML 2ML syringe IV ONE ×3 (14:20→14:21)
[2025-01-29] MEDS: MIDAZolam 5mg/ml 2ml vial IV ONE ×3 (14:21)
[2025-01-29 14:22] VITALS: TEMP 98
[2025-01-29 16:09] VITALS: BP 118/82; PULSE 103; RESP 16; O2SAT 99
[2025-01-29] MEDS ORDERED: heparin, porcine 5000 units/ml vial SQ SCH (20:00)
== END 2025-01-29 13:00 | disposition home or self-care (01) ==
LOC: ER 09:27 → ED HOLD 10:38 → UNDOADMIN 10:38 → ER 13:00 → UNDODISIN 13:00
DX: Z43.0 Encounter for attention to tracheostomy (principal); Z79.899 Other long term (current) drug therapy; M47.812 Spondylosis without myelopathy or radiculopathy, cervical region; R06.03 Acute respiratory distress; R09.89 Other specified symptoms and signs involving the circulatory and respiratory systems; T17.228A Food in pharynx causing other injury, initial encounter
CPT/HCPCS: 31645; 36415; 70360; 70491; 71045; 71260; 80048; 85025; 96374; 96375; 99291; J2250; J3010; J3490; J7030; Q9967; 94760; G0378